=== PATIENT | female | born 1990 | race Caucasian/White ===

== ENCOUNTER → 2019-10-19 12:29 | Outpatient (CLI) | payer OTHER, SELFPAY ==
--- NOTE | 2019-10-19 12:32 | DI.RAD.S_ITS ---
PROCEDURE: XR KNEE RT 3V INDICATIONS: 2 months of knee pain TECHNIQUE: 3-views of the knee were acquired. COMPARISON: None. FINDINGS: Bones: No fractures or dislocations. No suspicious bony lesions. Soft tissues: No joint effusion. No suspicious soft tissue calcifications. IMPRESSION: Right knee without acute osseous abnormalities or malalignment. If there are persistent symptoms or clinical suspicion for pathology, then repeat radiographs or advanced imaging (CT, MRI or bone scan) should be considered for further evaluation. Dictated by: Julio César Theodore M.D. on 10/19/2019 at 16:35 Approved by: Julio César Theodore M.D. on 10/19/2019 at 16:36
== END ==
PROVIDERS: PCP Family Medicine; Referring Provider Family Medicine; Visit Provider Family Medicine
DX: M25.561 Pain in right knee (principal)
CPT/HCPCS: 73562

== ENCOUNTER → 2021-01-11 07:41 | Outpatient (CLI) | payer OTHER, SELFPAY ==
[2021-01-11] MEDS: COVID-19 VACC #2, MRNA(MOD) 100 MCG/0.5 ML VIAL IM (07:54)
== END ==
PROVIDERS: PCP Family Medicine; Visit Provider Internal Medicine
DX: Z23 Encounter for immunization (principal)
CPT/HCPCS: 0012A; 91301

== ENCOUNTER 2021-01-16 08:36 | Emergency (ER) | payer OTHER, SELFPAY ==
[2021-01-16 08:47] VITALS: BP 142/101; PULSE 101; RESP 18; TEMP 36.4; O2SAT 99; BMI 31.6
--- NOTE | 2021-01-16 08:49 | DI.US.S_ITS ---
PROCEDURE: US PERIPH VENOUS LOW EXTREM LT INDICATIONS: PAIN/SWELLING, ERYTHMA TECHNIQUE: Real-time imaging, as well as color and pulse Doppler interrogation, were performed of the lower extremity deep veins from the inguinal ligament to the popliteal fossa. COMPARISON: None. FINDINGS: The common femoral, femoral and popliteal veins are normally compressible, and free of intraluminal thrombus. Color and pulse Doppler demonstrate normal phasic intraluminal flow. There is normal augmentation response to distal compression maneuver. IMPRESSION: Negative for deep venous thrombosis. Dictated by: Kvng Santo M.D. on 01/16/2021 at 8:26 Approved by: Kvng Santo M.D. on 01/16/2021 at 8:26
--- NOTE | 2021-01-16 08:56 | ED.LOWEXIN ---
HPI - Extremity Injury (Lower) General Chief Complaint: Extremity Injury, Lower Stated Complaint: potential blood clot in left leg Time Seen by Provider: 01/16/21 08:42 Source: patient Mode of arrival: Ambulatory Limitations: no limitations History of Present Illness HPI Narrative: 33F nonsmoker with noncontributory medical history presents with a chief complaint of episodic pain and swelling in her left medial thigh and posterior knee. She states that over the past few days she has had a couple episodes where she feels pain and swelling as well as redness but it seems to go away after a bit of time. It is not currently causing her issue. She denies any recent injury, history of blood clots, recent travel or cancer. She has had no fever or chills. She denies any chest pain or shortness of breath. She is not dizzy, weak or lightheaded. Related Data Previous Rx's Medication Instructions Recorded levonorgestrel-ethinyl estradiol 1 tab PO DAILY #84 tab 01/12/20 0.1 mg-20 mcg tablet Allergies Allergy/AdvReac Type Severity Reaction Status Date / Time Penicillins AdvReac Severe Rash Verified 01/16/21 09:27 Review of Systems Constitutional Constitutional: Denies chills, Denies fatigue, Denies fever(s), Denies frequent falls, Denies lethargy and Denies weakness Eyes Eyes: Denies change in vision, Denies eye discharge, Denies irritation and Denies loss of vision ENT Ears, Nose, Mouth, and Throat: Denies change in voice, Denies dizziness, Denies neck pain, Denies sore throat and Denies throat swelling Cardiovascular Cardiovascular: Denies chest pain, Denies irregular heart rhythm, Denies lightheadedness, Denies palpitations, Denies dyspnea, Denies dyspnea on exertion and Denies orthopnea Respiratory Respiratory: Denies cough, Denies dyspnea, Denies dyspnea on exertion and Denies wheezing Gastrointestinal Gastrointestinal: Denies abdominal pain, Denies change in bowel habits, Denies diarrhea, Denies nausea and Denies vomiting Musculoskeletal Musculoskeletal: Denies neck pain and Denies numbness Integumentary/Breasts Skin/Breast: Denies pruritus, Reports erythema, Denies rash, Reports skin pain, Reports skin swelling and Denies wounds Neurologic Neurologic: Denies behavioral changes, Denies confusion, Denies dizziness, Denies frequent falls, Denies loss of vision, Denies numbness and Denies weakness Psychiatric Psychiatric: Denies anxiety, Denies behavioral changes, Denies confusion, Denies depression, Denies homicidal ideation and Denies suicidal ideation Endocrine Endocrine: Denies fatigue, Denies flushing and Denies palpitations Hematologic/Lymphatic Hematologic/Lymphatic: Denies easy bruising Allergic/Immunologic Allergic/Immunologic: Denies urticaria, Denies throat swelling and Denies wheezing Patient History Medical History (Updated 01/16/21 @ 09:36 by Franko Manriquez DO) Chicken pox (~1997) Fractures Irregular menstrual cycle (~2014) Left leg pain Right knee pain Somatic dysfunction of right lower extremity Varicose veins of both legs with edema Surgical History (Updated 10/17/19 @ 15:20 by Kamala Bosch) Anesthesia History of varicose vein ligation [place] teeth removed (~2010) Family History (Updated 10/17/19 @ 15:22 by Kamala Bosch) Sister Liver failure Grandmother Cancer Grandfather Cancer History of heart disease Hyperlipidemia Hypertension Grandmother Hypertension Stroke Social History Smoking Status: Never smoker Smoking Status: Never smoker alcohol intake frequency: 0-2 drinks per day Substance Use Type: does not use Exam Narrative Exam Narrative: GEN: AOx3 and in mild distress EYES: Pupils are equal, round, and reactive to light and accommodation. Extraoccular muscles are intact bilaterally. There is no subconjunctival hemorrhage or exudate. CHEST: Lungs are clear to auscultation bilaterally and free of wheezes, rales, or rhonchi. Heart rate is regular rhythm, there are no murmurs, clicks, rubs, or gallops. There is no chest wall tenderness. ABD: Abdomen is soft and nontender. There is no guarding or rebound. Bowel sounds are normal in all 4 quadrants. There is no mass or organomegaly. EXT: Full painless ROM of all extremities with no loss of sensation or strength. SKIN: Warm, pink, and dry. No erythema or rash Initial Vital Signs Initial Vital Signs: Vital Signs Temperature 97.6 F 01/16/21 08:47 Pulse Rate 101 H 01/16/21 08:47 Respiratory Rate 18 01/16/21 08:47 Blood Pressure 142/101 H 01/16/21 08:47 Pulse Oximetry 99 01/16/21 08:47 Course Orders Ordered: ED Orders 01/16/21 08:49 US periph venous low extrem lt Stat Vital Signs Vital signs: Vital Signs - 8 hr 01/16/21 08:47 Temperature 97.6 F Pulse Rate 101 H Respiratory Rate 18 Blood Pressure 142/101 H Pulse Oximetry 99 MDM - Extremity Injury (Lower) Lab Data Labs: [address] [id number] ReportSigned Patient: Briana Magallon MMR#: [id number]: [id number]:[id number]/Sex: 30 / FDate of Service: 01/16/21Loc: EDAccession Number: [id number] Procedure: US periph venous low extrem lt Ordering Provider: Franko Manriquez D.O. PROCEDURE: US PERIPH VENOUS LOW EXTREM LT INDICATIONS: PAIN/SWELLING, ERYTHMA TECHNIQUE: Real-time imaging, as well as color and pulse Doppler interrogation, were performed of the lower extremity deep veins from the inguinal ligament to the popliteal fossa. COMPARISON: None. FINDINGS: The common femoral, femoral and popliteal veins are normally compressible, and free of intraluminal thrombus. Color and pulse Doppler demonstrate normal phasic intraluminal flow. There is normal augmentation response to distal compression maneuver. IMPRESSION: Negative for deep venous thrombosis. Dictated by: Kvng Santo M.D. on 01/16/2021 at 8:26 Approved by: Kvng Santo M.D. on 01/16/2021 at 8:26 [facility] Narrative Medical decision making narrative: Patient with episodic pain, swelling and redness. She has minimal risk factors for DVT and had a negative ultrasound, however this is still on the differential given her description. Cellulitis considered but thought less likely given lack of current symptoms. She has had no systemic findings. I did discuss with her taking a baby aspirin in continued use of her compression stockings with follow-up in 1 week for ongoing symptoms. Discharge Plan Departure Patient Disposition: Home Clinical Impression: Left leg pain Instructions: DI for Leg Pain Activity Restrictions/Additional Instructions: *You have been diagnosed with [leg pain without evidence of clot] *What to do: *Please continue to take your regular medications as directed. [ ] New medication prescriptions sent to your pharmacy: [ ] [ ] New medication written as a paper prescription [x] No new medications given *Please follow up with your primary care provider in 2-3 days, call for an appointment. Let them know you were seen in the Emergency Department and that we ask that you be seen in follow up. We will electronically transmit a record of today's note if your PCP is in our system *If you do not have a primary care provider please contact the [facility] Resource line at [phone]. They will ask some questions about your medical history and help get you set up with a doctor in the community. *Return to Emergency Department if you should have any new, worsening or concerning symptoms, such as [fever greater than 101 F, shaking chills, worsening pain, persistent vomiting or other bothersome symptoms] Prescriptions: No Action levonorgestrel-ethinyl estrad 0.1-20 mg-mcg tablet 1 tab PO DAILY Qty: 84 RF: 1 Referrals: Jose Carlos Villatoro DO [Primary Care Provider] -
== END 2021-01-16 09:54 | disposition home or self-care (01) ==
PROVIDERS: Emergency Provider Emergency Medicine; PCP Family Medicine
DX: M79.605 Pain in left leg (principal)
CPT/HCPCS: 93971; 99283

== ENCOUNTER → 2021-03-02 11:32 | Outpatient (CLI) | payer OTHER, SELFPAY ==
[2021-03-02 12:47] LABS: HCG Quantitative /Beta subunit 26.5 mIU/mL
[2021-03-04 12:29] LABS: HCG Quantitative /Beta subunit 66.5 mIU/mL
== END ==
PROVIDERS: PCP Family Medicine; Referring Provider Family Medicine; Visit Provider Family Medicine
DX: Z32.00 Encounter for pregnancy test, result unknown (principal)
CPT/HCPCS: 36415; 84702

== ENCOUNTER → 2021-03-05 17:01 | Outpatient (CLI) | payer OTHER, SELFPAY ==
[2021-03-05 17:51] LABS: Progesterone, Total 6.27 ng/mL
== END ==
PROVIDERS: PCP Family Medicine; Visit Provider Family Medicine
DX: Z34.90 Encounter for supervision of normal pregnancy, unspecified, unspecified trimester (principal); N92.6 Irregular menstruation, unspecified
CPT/HCPCS: 84144

== ENCOUNTER → 2021-03-06 17:32 | Outpatient (CLI) | payer OTHER, SELFPAY ==
[2021-03-06 19:03] LABS: HCG Quantitative /Beta subunit 206.1 mIU/mL
== END ==
PROVIDERS: PCP Family Medicine; Referring Provider Specialist; Visit Provider Specialist
DX: Z34.90 Encounter for supervision of normal pregnancy, unspecified, unspecified trimester (principal)
CPT/HCPCS: 36415; 84702

== ENCOUNTER → 2021-03-19 07:32 | Outpatient (CLI) | payer OTHER, SELFPAY ==
[2021-03-19 10:40] LABS: HCG Quantitative /Beta subunit 19568 mIU/mL
== END ==
PROVIDERS: PCP Family Medicine; Referring Provider Specialist; Visit Provider Specialist
DX: O26.899 Other specified pregnancy related conditions, unspecified trimester (principal); R10.9 Unspecified abdominal pain
CPT/HCPCS: 36415; 84702

== ENCOUNTER → 2021-03-21 07:30 | Outpatient (CLI) | payer OTHER, SELFPAY ==
[2021-03-21 09:44] LABS: HCG Quantitative /Beta subunit 27957 mIU/mL
== END ==
PROVIDERS: PCP Family Medicine; Referring Provider Specialist; Visit Provider Specialist
DX: O26.899 Other specified pregnancy related conditions, unspecified trimester (principal); R10.9 Unspecified abdominal pain
CPT/HCPCS: 36415; 84702

== ENCOUNTER → 2021-04-06 17:36 | Outpatient (CLI) | payer OTHER, SELFPAY ==
[2021-04-06 18:13] LABS: Add Manual Diff / Slide Review NO; Basophils Absolute Auto 0 /uL (0-100); Basophils Percent Auto 0.2 % (0-2); Eosinophils Absolute Auto 100 /uL (0-450); Eosinophils Percent Auto 0.6 % (2-4); Hematocrit 39.7 % (36-46); Hemoglobin 13.4 g/dL (12.0-16.0); Lymphocytes Absolute Auto 2200 /uL (1100-4500); Mean Corpuscular HGB Conc 33.7 % (30-36); Mean Corpuscular Hemoglobin 29.5 PG (26-34); Mean Corpuscular Volume 87.5 fL (80-100); Monocytes Absolute Auto 900 /uL (0-900); Monocytes Percent Auto 6.8 % (3-14); Neutrophils Absolute Auto 9600 /uL (1500-7000); Neutrophils Percent Auto 75.4 % (50-75); Platelet Count 272 X10^3/uL (150-400); Red Blood Cell Count 4.53 X10^6/uL (4.0-5.2); Red Cell Distribution Width 12.5 % (11.6-14.8); White Blood Cell Count 12.7 X10^3/uL (4.5-11.0)
[2021-04-06 18:15] LABS: Appearance Urine UA CLEAR; Bilirubin Urine UA NEGATIVE (NEGATIVE); Color Urine UA YELLOW; Glucose Urine UA NEGATIVE (Negative); Ketones Urine UA NEGATIVE (NEGATIVE); Leukocyte Esterase Urine UA NEGATIVE (NEGATIVE); Nitrite Urine UA NEGATIVE (Negative); Occult Blood Urine UA NEGATIVE (Negative); Protein Urine UA NEGATIVE (Negative); Urobilinogen Urine UA 0.2 E.U./dL (0.2)
[2021-04-06 18:18] LABS: Glucose 90 mg/dL (70-100)
[2021-04-06 18:36] LABS: Hemoglobin A1C% w Est Avg Glu 5.2 % (4.0-6.0)
[2021-04-06 19:41] LABS: Urine Chlamydia NOT DETECTED; Urine N gonorrhoeae NOT DETECTED
[2021-04-06 20:06] LABS: HIV 1 & 2 Ab/Ag 4th Gen Combo NEGATIVE (NEGATIVE); Hep C Virus Ab w/Reflex Quant NEGATIVE s/c (NEGATIVE); Hepatitis B Surface Antigen NEGATIVE s/c (NEGATIVE)
[2021-04-07 11:21] LABS: RPR Screen Non Reactive (Non Reactive); Varicella IgG Antibody 962 index (Immune >165)
== END ==
PROVIDERS: PCP Family Medicine; Referring Provider Specialist; Visit Provider Specialist
DX: Z34.01 Encounter for supervision of normal first pregnancy, first trimester (principal); Z3A.08 8 weeks gestation of pregnancy
CPT/HCPCS: 36415; 80055; 81003; 82947; 83036; 86787; 86803; 86850; 86900; 86901; 87086; 87389; 87491; 87591

== ENCOUNTER → 2021-04-19 15:31 | Outpatient (CLI) | payer OTHER, SELFPAY | PROVIDERS: PCP Family Medicine; Referring Provider Specialist; Visit Provider Specialist | DX: Z34.81 Encounter for supervision of other normal pregnancy, first trimester (principal); Z36.0 Encounter for antenatal screening for chromosomal anomalies | CPT/HCPCS: 36415 ==

== ENCOUNTER → 2021-06-04 16:51 | Outpatient (CLI) | payer OTHER, SELFPAY ==
[2021-06-06 19:12] LABS: Gest Age on Col Date 16.7 weeks (.); Gestational Age Ultrasound (.); Insulin Dep Diabetes No (.); OSBR Risk 1IN 5096 (.); Results Report (.); Test Results *Screen Negative* (.)
== END ==
PROVIDERS: PCP Family Medicine; Referring Provider Specialist; Visit Provider Specialist
DX: Z34.90 Encounter for supervision of normal pregnancy, unspecified, unspecified trimester (principal); Z3A.16 16 weeks gestation of pregnancy
CPT/HCPCS: 36415; 82105

== ENCOUNTER → 2021-07-02 15:38 | Outpatient (CLI) | payer OTHER, SELFPAY ==
--- NOTE | 2021-07-02 15:39 | DI.US.S_ITS ---
PROCEDURE: US OB >= 14 WEEKS FETUS INDICATIONS: 20 WEEK ANATOMY SCAN OUTSIDE/PRIOR DATING DATA: Last menstrual period (LMP): Uncertain. First dating scan (date and location): [facility]; July 02, 2021 . Estimated date of delivery (MAEGAN) from first dating scan: November 09, 2021 . TECHNIQUE: Real-time scanning was performed of the fetus, with image documentation and biometric measurements. COMPARISON: None. FINDINGS: General: A single living intrauterine gestation is present. Presentation: Oblique/breech. Placenta: Placental position is anterior , without previa. Amniotic fluid index: 12.6 cm, normal range is 5-24 cm. heart rate: 143 beats per minute. Maternal cervical canal: 4.2 cm long. Normal lower limit is 2.5 cm. biometrics: Biparietal diameter: 4.8 cm Head circumference: 18.4 cm Abdominal circumference: 16.2 cm Femur length: 4 cm Estimated gestational age from initial scan: not applicable. Composite gestational age from present scan: 21 weeks, 3 days Estimated weight: 451 g +/-67 g Measurement variability for biometric dating: +/- 7 days from 14 weeks to 15 weeks 6 days gestation, +/- 10 days from 16 weeks to 21 weeks 6 days gestation, +/- 2 weeks from 22 weeks to 27 weeks 6 days gestation, +/- 3 weeks for 28 weeks gestation or later. weight reference: 4500 g or EFW >90/95% is considered macrosomia or large for gestational age. EFW <10% is small for gestational age. EFW 5% or less is considered intra-uterine growth restriction. Anatomic survey: Neuro: Ventricles are non-dilated at less than 10 mm. Cisterna magna is normal at 3-11 mm. Cerebellum is normal in size and morphology. Nuchal skin fold: Normal at less than 6 mm between 14-21 weeks gestational age. Face: Not well seen. Spine: Sacrum against the uterus . The remaining portions of the spine appear normal.. Heart: 4-chambered heart is present. Outflow tracts not well visualized. Diaphragm: Suboptimal evaluation. Stomach: Left-sided stomach is present. Kidneys: Suboptimal evaluation. Cord: 3-vessel cord has orthotopic insertion. Bladder: Normal in size. Extremities: All 4 extremities identified. IMPRESSION: Live single intrauterine gestation as detailed above. Dictated by: Rodrigo Tamayo M.D. on 07/02/2021 at 17:27 Approved by: Rodrigo Tamayo M.D. on 07/02/2021 at 17:33
== END ==
PROVIDERS: PCP Family Medicine; Referring Provider Specialist; Visit Provider Specialist
DX: Z34.02 Encounter for supervision of normal first pregnancy, second trimester (principal); Z3A.21 21 weeks gestation of pregnancy
CPT/HCPCS: 76811

== ENCOUNTER → 2021-08-08 07:08 | Outpatient (CLI) | payer OTHER, SELFPAY ==
[2021-08-08 09:48] LABS: Hematocrit 32.8 % (36-46); Hemoglobin 11.3 g/dL (12.0-16.0)
[2021-08-08 12:05] LABS: GTT (PREG) 1 Hour PP 50gm Dose 90 mg/dL (76-139)
== END ==
PROVIDERS: PCP Family Medicine; Referring Provider Specialist; Visit Provider Specialist
DX: Z34.02 Encounter for supervision of normal first pregnancy, second trimester (principal); Z3A.26 26 weeks gestation of pregnancy
CPT/HCPCS: 36415; 82950; 85014; 85018

== ENCOUNTER → 2021-08-17 16:14 | Outpatient (CLI) | payer OTHER, SELFPAY ==
[2021-08-17 17:08] LABS: COVID19 -Nasal RAPID POSITIVE (Negative)
== END ==
PROVIDERS: PCP Family Medicine; Visit Provider Physician Assistant
DX: U07.1 COVID-19 (principal); Z20.822 Contact with and (suspected) exposure to COVID-19; R09.81 Nasal congestion; R52 Pain, unspecified; R05.9 Cough, unspecified
CPT/HCPCS: 87635

== ENCOUNTER → 2021-10-17 15:42 | Outpatient (CLI) | payer OTHER, SELFPAY ==
[2021-10-18 13:25] LABS: Strep Grp B PCR NEG for Grp B Strep
== END ==
PROVIDERS: PCP Family Medicine; Visit Provider Specialist
DX: Z36.85 Encounter for antenatal screening for Streptococcus B (principal); Z3A.36 36 weeks gestation of pregnancy
CPT/HCPCS: 87653

== ENCOUNTER → 2021-10-30 10:25 | Outpatient (CLI) | payer OTHER, SELFPAY ==
[2021-10-30 10:52] LABS: Add Manual Diff / Slide Review NO; Basophils Absolute Auto 0 /uL (0-100); Basophils Percent Auto 0.1 % (0-2); Eosinophils Absolute Auto 100 /uL (0-450); Eosinophils Percent Auto 0.7 % (2-4); Hematocrit 37.8 % (36-46); Hemoglobin 12.5 g/dL (12.0-16.0); Lymphocytes Absolute Auto 1500 /uL (1100-4500); Lymphocytes Percent Auto 13.7 % (25-40); Mean Corpuscular HGB Conc 33.1 % (30-36); Mean Corpuscular Hemoglobin 28.9 PG (26-34); Mean Corpuscular Volume 87.5 fL (80-100); Monocytes Absolute Auto 800 /uL (0-900); Monocytes Percent Auto 7.1 % (3-14); Neutrophils Absolute Auto 8600 /uL (1500-7000); Neutrophils Percent Auto 78.4 % (50-75); Platelet Count 251 X10^3/uL (150-400); Red Blood Cell Count 4.33 X10^6/uL (4.0-5.2); Red Cell Distribution Width 14.1 % (11.6-14.8)
[2021-10-30 11:44] LABS: Alanine Aminotransferase 16 IU/L (<35); Aspartate Aminotransferase 26 IU/L (14-36); BUN Creatinine Ratio 13.2 (6-22); Blood Urea Nitrogen 7 mg/dL (7-17); Estimated Glomerular Filt Rate > 60.0 mL/min (>60); Uric Acid 4.3 mg/dL (2.5-6.2)
== END ==
PROVIDERS: PCP Family Medicine; Referring Provider Specialist; Visit Provider Specialist
DX: O16.3 Unspecified maternal hypertension, third trimester (principal)
CPT/HCPCS: 36415; 82565; 84450; 84460; 84520; 84550; 85025

== ENCOUNTER 2021-11-06 20:04 | Inpatient (IN) | payer OTHER, SELFPAY ==
[2021-11-06 20:27] VITALS: BP 119/83
[2021-11-06] MEDS: DINOPROSTONE VAG (CERVIDIL) 10 MG VAG (21:10)
[2021-11-06 21:11] LABS: Add Manual Diff / Slide Review NO; Basophils Absolute Auto 0 /uL (0-100); Basophils Percent Auto 0.1 % (0-2); Eosinophils Absolute Auto 100 /uL (0-450); Eosinophils Percent Auto 0.7 % (2-4); Hematocrit 36.1 % (36-46); Hemoglobin 12.3 g/dL (12.0-16.0); Lymphocytes Absolute Auto 1900 /uL (1100-4500); Lymphocytes Percent Auto 15.6 % (25-40); Mean Corpuscular HGB Conc 34.2 % (30-36); Mean Corpuscular Hemoglobin 29.5 PG (26-34); Mean Corpuscular Volume 86.3 fL (80-100); Monocytes Absolute Auto 1100 /uL (0-900); Monocytes Percent Auto 8.9 % (3-14); Neutrophils Absolute Auto 9100 /uL (1500-7000); Neutrophils Percent Auto 74.7 % (50-75); Platelet Count 234 X10^3/uL (150-400); Red Blood Cell Count 4.18 X10^6/uL (4.0-5.2); Red Cell Distribution Width 13.9 % (11.6-14.8); White Blood Cell Count 12.1 X10^3/uL (4.5-11.0)
[2021-11-06 21:25] LABS: COVID19 -Nasal RAPID Negative (Negative)
[2021-11-06 21:33] LABS: Alanine Aminotransferase 15 IU/L (<35)
[2021-11-06] MEDS: ZOLPIDEM 5 MG TABLET PO (22:43)
--- NOTE | 2021-11-07 07:00 | PM.OBPNLAB ---
Date/Time Date Patient Seen: 11/07/21 Time Patient Seen: 07:00 Pain Control Pain control: tolerating well Comments: Blood pressure 121/67, temperature 36.3? Pelvic Exam Dilation (cm): 1 Effacement (%): 75 station: 0 Amniotic membrane status: Intact Contractions Contractions on admission: irregular Monitor mode: External Contraction pattern: Irregular Contraction intensity: Mild Status status: Category l Heart Rate Baseline: 120 Monitor Accelerations: Present Monitor Decelerations: Absent Monitor Variability: Moderate Assessment and Plan Assessment: induction ongoing Plan: begin patient augmentation (Pitocin) Comments: Epidural when requested
[2021-11-07] MEDS: LACTATED RINGERS 1,000 ML 100 ML IV ×2 (08:23→18:01)
[2021-11-07] MEDS: OXYTOCIN PREMIX 30 UNIT/500 ML PLAST..BAG IV (08:24)
--- NOTE | 2021-11-07 11:34 | PM.OBPNLAB ---
Date/Time Date Patient Seen: 11/07/21 Time Patient Seen: 11:34 Pain Control Pain control: tolerating well Pelvic Exam Dilation (cm): 1 Effacement (%): 75 station: 0 Amniotic membrane status: Intact Contractions Contractions on admission: regular Monitor mode: External Pitocin rate (mU/min): 20 Contraction frequency (min): 3 Contraction duration (min): 1 Contraction pattern: Regular Contraction intensity: Moderate Status status: Category l Heart Rate Baseline: 130 Monitor Accelerations: Present Monitor Decelerations: Absent Monitor Variability: Moderate Assessment and Plan Assessment: induction ongoing Plan: continuous present management
[2021-11-07] MEDS: ZOLPIDEM 5 MG TABLET PO (21:33)
--- NOTE | 2021-11-08 08:10 | PM.OBPNLAB ---
Date/Time Date Patient Seen: 11/07/21 Time Patient Seen: 17:30 Pain Control Pain control: tolerating well Pelvic Exam Dilation (cm): 1 Effacement (%): 75 station: 0 Amniotic membrane status: Intact Contractions Contractions on admission: regular Monitor mode: External Pitocin rate (mU/min): 12 Contraction frequency (min): 3 Contraction duration (min): 1 Contraction pattern: Regular Contraction intensity: Moderate Status status: Category l Heart Rate Baseline: 140 Monitor Accelerations: Present Monitor Decelerations: Absent Monitor Variability: Moderate Assessment and Plan Assessment: induction ongoing Comments: Patient had spaced out contractions at Pitocin at 24 milliunits. The Pitocin was turned off for an hour than restarted at half dose. Patient began having more uncomfortable contractions. Decision will be to continue Pitocin for few more hours and then decide if we will let her rest overnight or continue with induction.
--- NOTE | 2021-11-08 08:12 | PM.OBPNLAB ---
Date/Time Date Patient Seen: 11/08/21 Time Patient Seen: 08:12 Pain Control Pain control: tolerating well Pelvic Exam Dilation (cm): 1 Effacement (%): 75 station: 0 Comments: Patient had the Pitocin. Yesterday evening due to no change in cervix. She slept through the night. Decision was made to proceed with Burnett bulb induction this morning. With placement of the Burnett bulb of she had rupture of membranes clear fluid. Contractions Contractions on admission: none Monitor mode: External Contraction frequency (min): 0 Contraction pattern: Absent Status status: Category l Heart Rate Baseline: 130 Monitor Accelerations: Present Monitor Decelerations: Absent Monitor Variability: Moderate Assessment and Plan Assessment: induction ongoing Comments: Burnett bulb placed. Pitocin will be started and continued at 3 milliunits with the Burnett bulb in place.
--- NOTE | 2021-11-08 14:17 | PM.OBPNLAB ---
Date/Time Date Patient Seen: 11/08/21 Time Patient Seen: 12:40 Pain Control Pain control: tolerating well Pelvic Exam Dilation (cm): 2 Effacement (%): 80 station: 0 Amniotic membrane status: Ruptured Contractions Contractions on admission: regular Monitor mode: External Contraction frequency (min): 5 Contraction duration (min): 1 Contraction pattern: Regular Contraction intensity: Moderate Status status: Category l Heart Rate Baseline: 120 Monitor Accelerations: Present Monitor Decelerations: Absent Monitor Variability: Moderate Assessment and Plan Assessment: induction ongoing
[2021-11-08] MEDS: LACTATED RINGERS 1,000 ML 100 ML IV (18:02)
[2021-11-09] MEDS: FENT 2MCG/ML BUPIV 0.125% EPI 200 MCG/100 ML PLAST..BAG 8 MCG EPIDURAL
[2021-11-09] MEDS: ACETAMINOPHEN 325 MG TABLET 650 MG PO ×3 (02:39→18:22)
[2021-11-09] MEDS: CEFAZOLIN 10 ML IV (02:50)
--- NOTE | 2021-11-09 04:27 | PM.OBPNLAB ---
Date/Time Date Patient Seen: 11/09/21 Time Patient Seen: 04:27 Pain Control Pain control: epidural Pelvic Exam Dilation (cm): 4 Effacement (%): 100 station: 0 Amniotic membrane status: Ruptured Contractions Contractions on admission: regular Monitor mode: Internal Pitocin rate (mU/min): 14 Contraction frequency (min): 3 Contraction duration (min): 1 Contraction pattern: Regular Contraction intensity: Strong/Firm Intrauterine tone measurement: 50 Status status: Category l Heart Rate Baseline: 150 Monitor Accelerations: Present Monitor Decelerations: Absent Monitor Variability: Moderate Assessment and Plan Assessment: active labor Plan: Comments: Patient with no significant change in her cervix for over 6 hours despite documented adequate contractions by internal toco. Will proceed with section.
--- NOTE | 2021-11-09 04:29 | P.OP.PRE_ITS ---
Pre-operative Note COVID-19 COVID-19 status: Negative Result date/Date tested (Pos, Neg/Pending): 11/06/21 Criteria for continued procedure: Delay expected to result in less-positive ultimate med/surg outcome Interval Note History & Physical reviewed/Exam performed by Physician: Yes Changes to H&P: Yes H&P completed within 30 days and has changed as indicated here:: 1st stage ar rest
[2021-11-09] MEDS: AZITHROMYCIN 500 MG in DEXTROSE 5% IN WATER 250 ML IV (05:41)
--- NOTE | 2021-11-09 06:14 | SUR.OPER ---
Supine on Padded OR bed, head on pillow, safety belt at thigh, arms secured on padded arm boards at <90 degrees abduction. Bump under right buttock. Legs uncrossed with pillow under knees, gel pad to heels, tape over blanket to lower legs.
--- NOTE | 2021-11-09 06:14 | SUR.OPER ---
viable female delivered at 0559. cord blood and placenta sent with L&D nurses.
[2021-11-09] MEDS: ONDANSETRON 4 MG/2 ML INJ IV (06:49)
[2021-11-09] MEDS: HYDROMORPHONE 2 MG INJ IV (06:50)
[2021-11-09 06:56] VITALS: BP 122/75; PULSE 102; RESP 15; O2SAT 95
[2021-11-09 06:58] VITALS: BP 117/71; PULSE 88; RESP 12; O2SAT 94
--- NOTE | 2021-11-09 06:58 | P.OP_ITS ---
Operative Date/Time/Diagnoses Date of procedure: 11/09/21 Time of procedure: 06:58 Pre-op diagnosis: 1st stage arrest Post-op diagnosis: same Procedure & Clinicians Procedure: Primary low-transverse section Same procedure as scheduled: Yes Indications: 1st stage arrest Surgeon: Diana Escalona Mason Helper: Magdalena Eisenberg Anesthesia Type: Epidural Operative Notes Findings: Normal tubes, ovaries, uterus. Viable female infant weighing 8 lb 12 oz with Apgars of 8 and 9 Closure Type: primary Specimen(s): cord blood Intraoperative meds administered: Ketorolac and Pitocin Applied: Catheter (Burnett) Estimated Blood Loss (mL): 500 Blood products transfused: none Procedure in detail: The patient was brought to the operating room where she underwent bolus of her epidural for anesthesia. She was placed in a supine position with a left lateral tilt. A Burnett catheter was in place. Pulsatile stockings were placed and functional throughout the case. 2 g of Ancef were given IV 3 hours prior so she was given 500 mg of IV azithromycin prior to the incision. Warming was in place. The patient was prepped and draped in usual sterile fashion. A low transverse incision was made with a scalpel and the incision was carried down to the fascial layer which was incised transversely with scissors. The miller head assistant wet process did her side of the incision. The midline attachments are superiorly and inferiorly. Some bleeding was controlled Bovie. The rectus muscles were in the midline and the peritoneal incision was made with no damage to internal structures. The peritoneum was incised and superiorly and inferiorly. The incision was stretched with the surgeon and miller head assistant wet process placing traction. Bladder blade was placed and a bladder flap was developed and the bladder held away from the lower uterine segment. An incision was made in the uterus with the scalpel and the incision was extended with stretching. The head was elevated out of the abdomen and with fundal pressure by the miller head assistant wet process the baby was delivered. The was bulb suctioned for clear fluid and handed off to the warmer. Cord blood was collected. The placenta delivered spontaneously with traction. The uterus was cleaned with clean laps. The uterine incision was closed in 2 layers of 0 chromic suture the first a running locking layer the second an imbricating layer. The miller head assistant wet process was helping to expose the incision. The bladder peritoneum was repaired with 2-0 Vicryl suture. The gutters were cleaned of any remaining fluids and ovaries and tubes were observed to be normal. Adequate hemostasis was noted. The perineum was closed with 2-0 Vicryl suture. The fascia layer was closed with 0 Vicryl suture with 2 stitches. The miller head assistant wet process repairing half the incision with helping to retract and expose the incision for the other half. The incision was irrigated and adequate hemostasis noted. The incision was closed with interrupted 3-0 Vicryl sutures and then a subcuticular stitch of 4-0 Vicryl suture. Steri-Strips were placed. The uterus was massaged to remove any clots. The patient went to recovery room in good condition. Counts of instruments and sponges were correct. Dr. Eisenberg was present throughout the case to assist with retraction, fundal pressure to deliver the , and suturing half the fascia. Complications: none Baby 1: Gender: Female Presentation: vertex Position: Left Occiput Transverse Placental Delivery Description: Expressed Cord Vessel Description: 3 Vessels score (1 min): 8 score (5 min): 9 weight: 8 lb 12 oz Post-operative Condition: stable Disposition: other ( Center) Aftercare: routine postop
[2021-11-09] MEDS: OXYCODONE/ACETAMINOPHEN 5/325 TABLET 1 TAB PO (07:04)
[2021-11-09 07:13] VITALS: BP 115/74; PULSE 90; RESP 12; O2SAT 94
[2021-11-09] MEDS: DOCUSATE 100 MG CAPSULE 200 MG PO (08:46)
[2021-11-09] MEDS: OXYTOCIN PREMIX 30 UNIT/500 ML PLAST..BAG 100 UNIT IV (09:38)
[2021-11-09] MEDS: OXYCODONE IR 10 MG TABLET PO ×3 (10:54→21:00)
[2021-11-09] MEDS: KETOROLAC 30 MG/ML VIAL IV ×2 (12:52→21:00)
[2021-11-09 23:00] VITALS: BP 114/72; PULSE 81; RESP 16; TEMP 36.1
[2021-11-10] MEDS: ACETAMINOPHEN 325 MG TABLET 650 MG PO ×3 (00:20→13:43)
[2021-11-10] MEDS: OXYCODONE IR 10 MG TABLET PO ×2 (00:57→06:42)
[2021-11-10] MEDS: KETOROLAC 30 MG/ML VIAL IV (03:11)
[2021-11-10 07:17] LABS: Add Manual Diff / Slide Review NO; Basophils Absolute Auto 0 /uL (0-100); Basophils Percent Auto 0.2 % (0-2); Eosinophils Absolute Auto 100 /uL (0-450); Eosinophils Percent Auto 0.8 % (2-4); Hematocrit 29.9 % (36-46); Lymphocytes Absolute Auto 1500 /uL (1100-4500); Mean Corpuscular HGB Conc 33.5 % (30-36); Mean Corpuscular Hemoglobin 29.6 PG (26-34); Mean Corpuscular Volume 88.3 fL (80-100); Monocytes Absolute Auto 1000 /uL (0-900); Neutrophils Absolute Auto 12300 /uL (1500-7000); Platelet Count 160 X10^3/uL (150-400); Red Blood Cell Count 3.39 X10^6/uL (4.0-5.2); Red Cell Distribution Width 14.2 % (11.6-14.8)
--- NOTE | 2021-11-10 09:22 | P.DS_ITS ---
History of Present Illness History of Present Illness Date Patient Seen: 11/10/21 Time Patient Seen: 09:02 Chief complaint: Induction Narrative: Patient is a 31-year-old G1 admitted for elective induction at 39+ weeks EGA. Discharge Providers Provider Date of admission: 11/06/21 20:04 Discharge Date: 11/10/21 Primary care physician: Jose Carlos Villatoro DO Consults: 11/06/21 22:03 Consult to Anesthesiology Urgent Comment: Consulting Provider: Anesthesiologist Reason for consultation: Epidural Has provider been notified: No 11/09/21 07:23 Consult to International Marketing Manager Routine Comment: Discharge provider: Salvador Gan MD Summary Hospital Course Discharge Diagnosis: Intrauterine gestation, 39+ 2 weeks gestational age, delivered Secondary arrest of descent and dilatation in the 1st stage of labor Hospital Course: Briana was admitted on 11/07/[address] Diana Escalona at 39+ 0 weeks gestational age for elective induction. Despite cervical ripening and effective Pitocin induction the patient did not advance beyond 4 cm with the vertex descending only to 0 station. On the morning of 11/09/2021, patient underwent a primary section for the aforementioned indications which was productive of a viable female infant, Apgars of 8/9 with a weight of 8 lb 12 oz. following delivery both mother and baby have done extremely well with the patient ambulating independently, having prompt return of bowel and bladder function, tolerating a regular diet, and her pain is well controlled with oral med ications. She will be discharged at this at home in an afebrile normotensive condition with medications to include oxycodone 10 mg tab p.o. Q 4-6 hours as needed pain, dispense 20, ibuprofen 600 mg p.o. q.6 hours as needed pain, docusate 200 mg p.o. q.d., ferrous sulfate 325 mg tabs 1 p.o. q.d. with 500 mg of vitamin-C times 30 days. Prior to discharge the patient were counseled regarding precautionary symptoms, limitations activity, medications, plans for follow-up which will be in 1 week for her dressing removal. Status at Discharge Cognitive/behavioral status at discharge: oriented Functional status at discharge: independent ambulation Overall status at discharge: patient is progressing back to baseline Time Spent with Patient Time spent: Less than 30 minutes Exam Vital Signs (past 8 hours): Oxygen Delivery Method Room Air Const General: cooperative, comfortable and well developed Nutritional Appearance: average body habitus Orientation: alert and oriented x3 HENMT Head: normal to inspection, normocephalic and atraumatic Face and sinus: face symmetric Eyes General: appearance normal, both eyes and all related structures Conjunctivae: conjunctivae normal Sclera: sclerae normal EOM: EOM intact bilaterally Neck Neck: normal visual inspection Resp Effort & Inspection: normal respiratory effort and able to speak in complete sentences Auscultation: clear to auscultation bilaterally Cardio Rate: regular rate Rhythm: regular rhythm Heart Sounds: S1 normal, S2 normal and no murmurs GI Inspection: normal to inspection and incision (Dressing clean, dry, intact) Palpation: soft, no hepatosplenomegaly, mass (Minimally tender, firm fundus, U - 5) and tender (Mild, bilateral lower quadrant postsurgical tenderness) Auscultation: normal bowel sounds Skin General: no rashes or lesions noted Extrem General: no calf tenderness Psych Appearance: grossly normal Mental Status: mental status grossly normal Speech and Movement: speech and movement normal Mood: congruent mood Affect: normal affect Attitude: cooperative Thought Process: normal Thought Content: normal Judgment: judgment good Objective Labs Result Diagrams: 11/10/21 06:42 Labs: Laboratory Results - last 24 hr 11/10/21 06:42 WBC 15.0 H RBC 3.39 L Hgb 10.0 L Hct 29.9 L MCV 88.3 MCH 29.6 MCHC 33.5 RDW 14.2 Plt Count 160 Neut % (Auto) 82.0 H Lymph % (Auto) 10.[address] [place] % (Auto) 7.0 Eos % (Auto) 0.8 L Baso % (Auto) 0.2 Neut # (Auto) 67577 H Lymph # (Auto) 1500 [place] # (Auto) 1000 H Eos # (Auto) 100 Baso # (Auto) 0 PFSH Medical History (Updated 11/09/21 @ 06:53 by Diana Escalona MD) Anxiety Breast pain (~2020) Chicken pox (~1997) Fractures Irregular menstrual cycle (~2014) Left leg pain Leg fracture, right (~2007) Right knee pain Somatic dysfunction of right lower extremity Varicose veins of both legs with edema Surgical History (Updated 03/28/21 @ 13:17 by Geneva Rodríguez RN) Anesthesia History of varicose vein ligation [place] teeth removed (~2010) Family History (Updated 03/28/21 @ 13:14 by Geneva Rodríguez RN) Sister Liver failure Mental health problem Suicide Grandmother Cancer Multiple myeloma Grandfather Cancer History of heart disease Hyperlipidemia Hypertension Colon cancer Aortic aneurysm Grandmother Hypertension Stroke Father Hypertension Knee joint replacement status Mother Gestational diabetes mellitus (GDM) affecting Asthma Depression Grandfather Heavy smoker Myocardial infarction Family/Other No problems noted. 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[email or web address]) current occupational exposures/hazards: No special pasquale needs: No leisure activities: other Smoking Status: Never smoker second hand exposure: No alcohol intake: former (pre- : only social ) substance use type: does not use Type(s) of exercise: additional (Horse Riding) Discharge Assessment & Plan Assessment and Plan Assessment: Intrauterine gestation, 39+ 2 weeks gestational age, delivered Secondary arrest of descent and dilatation in the 1st stage of labor Anemia, postop Plan of Treatment: Patient will be discharged to home with the above medications and follow-up will be in 1 week for dressing removal. Written discharge instructions provided to supplement [id number] discharge counseling. Discharge Plan Discharge Plan Patient Disposition: Home Provider Discharge Comment: Please review the written instructions you received at the time you were discharged from the hospital. Your follow-up appointment for removal of your dressing will be scheduled in one week. If in the meanwhile you have any issues, concerns, or problems, please contact the office by phone or by portal message. Discharge orders & Medications Prescriptions: New acetaminophen 325 mg Tablet 650 mg PO Q6H PRN (Reason: Fever/Mild Pain (1-3)) Qty: 0 0RF docusate sodium 100 mg Capsule 200 mg PO DAILY Qty: 60 0RF oxycodone 10 mg Tablet 10 mg PO Q4H PRN (Reason: Pain, Severe (7-10)) Qty: 20 0RF ibuprofen 600 mg tablet 600 mg PO Q6H PRN (Reason: pain) Qty: 60 2RF ferrous sulfate [iron] 325 mg (65 mg iron) tablet 325 mg PO DAILY Qty: 30 0RF ascorbic acid (vitamin C) [Vitamin C] 500 mg tablet 250 mg PO DAILY Qty: 30 0RF Continued prenat.vits,leonora,xtn-ajdv-wzibi Tablet 1 tab PO DAILY 0RF No Action (DME) Double Electric breast Pump and Supplies See Rx Instructions .ROUTE .MEDSUPPLY Qty: 1 0RF Rx Instructions: Use electric breast pump and supplies as directed for 99 months. MAEGAN 11/14/21. Follow up/Referrals: Diana Escalona MD [Physician] - (Please make an appointment with for aquacel removal in one week.) Jose Carlos Villatoro DO [Primary Care Provider] - Discharge Health Status Multidrug resistant organism: No MDRO Diet/Activity/Treatments Diet: Diet as Tolerated Activity: As tolerated Skin/Wound/Dressing Care Report to your healthcare provider any signs of infection, such as:: chills, fever, increased pain, unusual drainage and unusual redness Dressing: Dressing will be removed at your one week post-op visit Visit Report/Discharge Packet Instructions: DI for , DI for and Nipple Soreness, DI for Prescription Opioid Use Discharge Data Primary Care Provider: Jose Carlos Villatoro
[2021-11-10] MEDS: DOCUSATE 100 MG CAPSULE 200 MG PO (09:29)
[2021-11-10] MEDS: IBUPROFEN 600 MG TABLET PO (09:30)
== END 2021-11-10 14:50 | disposition home or self-care (01) | DRG 788 ==
PROVIDERS: Admitting Provider Specialist; PCP Family Medicine; Referring Provider Specialist; Visit Provider Specialist
PROC: 10D00Z1 Extraction of Products of Conception, Low, Open Approach (ICD-10-PCS; CPT 59514; principal; 2021-11-09 05:30)
DX: O62.1 Secondary uterine inertia (principal); Z3A.39 39 weeks gestation of pregnancy; Z37.0 Single live birth
CPT/HCPCS: 01967; 01968; 36415; 59050; 59200; 59510; 59514; 84460; 85025; 86850; 86900; 86901; 87635; C9803; G0379; J0690; J1170; J1885; J2250; J2274; J2405; J2590; J2704; J3010

== ENCOUNTER → 2022-03-22 12:07 | Outpatient (CLI) | payer BC, SELFPAY ==
--- NOTE | 2022-03-22 12:08 | DI.US.S_ITS ---
LIMITED ULTRASOUND OF RIGHT BREAST: 03/22/2022 CLINICAL: Palpable right breast lump x 1 year. No prior exams were available for comparison. Color flow and real-time ultrasound of the right breast were performed. No significant abnormalities were seen sonographically in the right breast. IMPRESSION: NEGATIVE No sonographic evidence of malignancy. No mass or other abnormality at the area of reportedly palpable concern. This exam was interpreted at Station ID: [id number]. Electronically Signed By: Jerrod Mendoza M.D. jr/:03/22/2022 13:10:48 letter sent: Normal Exam Ultrasound BI-RADS: 1 Negative
--- NOTE | 2022-03-22 12:08 | DI.US.S_ITS ---
ULTRASOUND OF LEFT BREAST: 03/22/2022 CLINICAL: Palpable left breast lump x 4 mos (4 mos post ). No prior exams were available for comparison. Color flow and real-time ultrasound of the left breast were performed. No significant abnormalities were seen sonographically in the left breast. IMPRESSION: NEGATIVE No sonographic evidence of malignancy. No mass or other abnormality at the area of reportedly palpable concern. This exam was interpreted at Station ID: [id number]. Electronically Signed By: Jerrod Mendoza M.D. jr/:03/22/2022 13:10:19 letter sent: Normal Exam Ultrasound BI-RADS: 1 Negative
== END ==
PROVIDERS: PCP Family Medicine; Referring Provider Family Medicine; Visit Provider Family Medicine
DX: N63.10 Unspecified lump in the right breast, unspecified quadrant (principal); N63.20 Unspecified lump in the left breast, unspecified quadrant; N64.4 Mastodynia
CPT/HCPCS: 76642

== ENCOUNTER → 2022-07-02 12:58 | Outpatient (CLI) | payer BC, SELFPAY | PROVIDERS: Family Provider Family Medicine; PCP Family Medicine; Referring Provider Family Medicine; Visit Provider Family Medicine ==

== ENCOUNTER → 2022-10-08 13:58 | Outpatient (CLI) | payer OTHER, SELFPAY ==
[2022-10-08 15:24] LABS: Influenza A - CEPHEID Flu A NEGATIVE (NEGATIVE); Influenza B - CEPHEID Flu B NEGATIVE (NEGATIVE); Respiratory Syncytial Virus Negative (Negative)
[2022-10-08 15:26] LABS: COVID-19 CEPHEID 4-PLEX PCR Negative (Negative)
== END ==
PROVIDERS: Family Provider Family Medicine; PCP Family Medicine; Visit Provider Physician Assistant Medical
DX: J06.9 Acute upper respiratory infection, unspecified (principal)
CPT/HCPCS: 0241U

== ENCOUNTER → 2022-11-13 07:04 | Outpatient (CLI) | payer OTHER, SELFPAY ==
[2022-11-13 07:53] LABS: Add Manual Diff / Slide Review NO; Basophils Absolute Auto 0 /uL (0-100); Basophils Percent Auto 0.2 % (0-2); Eosinophils Absolute Auto 100 /uL (0-450); Eosinophils Percent Auto 2.2 % (2-4); Hemoglobin 14.2 g/dL (12.0-16.0); Lymphocytes Absolute Auto 1500 /uL (1100-4500); Lymphocytes Percent Auto 31.8 % (25-40); Mean Corpuscular HGB Conc 33.8 % (30-36); Mean Corpuscular Hemoglobin 28.9 PG (26-34); Mean Corpuscular Volume 85.3 fL (80-100); Monocytes Absolute Auto 400 /uL (0-900); Monocytes Percent Auto 8.3 % (3-14); Neutrophils Absolute Auto 2700 /uL (1500-7000); Neutrophils Percent Auto 57.5 % (50-75); Platelet Count 242 X10^3/uL (150-400); Red Blood Cell Count 4.93 X10^6/uL (4.0-5.2); White Blood Cell Count 4.7 X10^3/uL (4.5-11.0)
[2022-11-13 08:03] LABS: Alanine Aminotransferase 30 IU/L (<35); Albumin 4.7 g/dL (3.5-5.0); Albumin Globulin Ratio 1.3 (1.0-2.8); Alkaline Phosphatase 94 U/L (38-126); Aspartate Aminotransferase 28 IU/L (14-36); BUN Creatinine Ratio 18.1 (6-22); Bilirubin Total 0.8 mg/dL (0.2-1.3); Blood Urea Nitrogen 15 mg/dL (7-17); Carbon Dioxide 24 mmol/L (22-32); Chloride 105 mmol/L (98-107); Cholesterol 230 mg/dL (140-199); Estimated Glomerular Filt Rate > 60 mL/min (>60); Globulin 3.5 g/dL (1.7-4.1); Glucose 100 mg/dL (70-100); HDL Cholesterol 54 mg/dL (40-60); HEMOLYSIS < 15 (0-50); LDL Cholesterol Calculated 154 mg/dL (<100); Potassium 3.8 mmol/L (3.4-5.1); Sodium 139 mmol/L (137-145); Total Protein 8.2 g/dL (6.3-8.2); Triglycerides 112 mg/dL (35-150)
[2022-11-13 08:45] LABS: Vitamin D 25 Hydroxy (D3) 66.2 ng/mL (30.0-100.0)
[2022-11-13 08:50] LABS: TSH w/ Reflex to FT4 0.78 uIU/mL (0.47-4.68)
[2022-11-13 08:51] LABS: Vitamin B12 413 pg/mL (239-931)
== END ==
PROVIDERS: Family Provider Family Medicine; PCP Family Medicine; Referring Provider Family Medicine; Visit Provider Family Medicine
DX: N92.6 Irregular menstruation, unspecified (principal); Z13.21 Encounter for screening for nutritional disorder; Z13.220 Encounter for screening for lipoid disorders; Z13.29 Encounter for screening for other suspected endocrine disorder
CPT/HCPCS: 36415; 80053; 80061; 82306; 82607; 82672; 84443; 85025

== ENCOUNTER → 2023-02-09 09:32 | Outpatient (CLI) | payer OTHER, SELFPAY | PROVIDERS: Family Provider Family Medicine; PCP Family Medicine; Visit Provider Registered Nurse | DX: J02.9 Acute pharyngitis, unspecified (principal) | CPT/HCPCS: 87070 ==

== ENCOUNTER → 2023-08-14 16:10 | Outpatient (CLI) | payer OTHER, SELFPAY ==
[2023-08-14 18:38] LABS: HCG Quantitative /Beta subunit 44.2 mIU/mL
== END ==
PROVIDERS: Family Provider Family Medicine; PCP Family Medicine; Referring Provider Obstetrics & Gynecology; Visit Provider Obstetrics & Gynecology
DX: N91.2 Amenorrhea, unspecified (principal)
CPT/HCPCS: 36415; 84144; 84702

== ENCOUNTER → 2023-08-16 09:23 | Outpatient (CLI) | payer OTHER, SELFPAY ==
[2023-08-16 10:03] LABS: HCG Quantitative /Beta subunit 111.5 mIU/mL
== END ==
PROVIDERS: Family Provider Family Medicine; PCP Family Medicine; Referring Provider Obstetrics & Gynecology; Visit Provider Obstetrics & Gynecology
DX: N91.2 Amenorrhea, unspecified (principal)
CPT/HCPCS: 36415; 84702

== ENCOUNTER → 2023-09-05 18:55 | Outpatient (ROUT) | payer OTHER, SELFPAY ==
[2023-09-05 20:30] LABS: Urine N gonorrhoeae NOT DETECTED
[2023-09-05 20:31] LABS: Urine Chlamydia NOT DETECTED
== END ==
PROVIDERS: Family Provider Family Medicine; PCP Family Medicine; Visit Provider Obstetrics & Gynecology
DX: Z34.01 Encounter for supervision of normal first pregnancy, first trimester (principal); Z34.80 Encounter for supervision of other normal pregnancy, unspecified trimester
CPT/HCPCS: 87491; 87591

== ENCOUNTER → 2023-10-06 10:52 | Outpatient (CLI) | payer OTHER, SELFPAY ==
[2023-10-06 11:17] LABS: Add Manual Diff / Slide Review NO; Basophils Absolute Auto 0 /uL (0-100); Basophils Percent Auto 0.3 % (0-2); Eosinophils Absolute Auto 0 /uL (0-450); Eosinophils Percent Auto 0.5 % (2-4); Hematocrit 37.5 % (36-46); Hemoglobin 12.9 g/dL (12.0-16.0); Lymphocytes Absolute Auto 1600 /uL (1100-4500); Lymphocytes Percent Auto 19.1 % (25-40); Mean Corpuscular HGB Conc 34.5 % (30-36); Monocytes Absolute Auto 500 /uL (0-900); Neutrophils Absolute Auto 6300 /uL (1500-7000); Neutrophils Percent Auto 74.1 % (50-75); Platelet Count 282 X10^3/uL (150-400); Red Blood Cell Count 4.31 X10^6/uL (4.0-5.2); Red Cell Distribution Width 12.7 % (11.6-14.8); White Blood Cell Count 8.6 X10^3/uL (4.5-11.0)
[2023-10-06 11:53] LABS: Alanine Aminotransferase 24 IU/L (<35); Aspartate Aminotransferase 25 IU/L (14-36); BUN Creatinine Ratio 25.4 (6-22); Blood Urea Nitrogen 15 mg/dL (7-17); Estimated Glomerular Filt Rate > 60 mL/min (>60); Uric Acid 3.6 mg/dL (2.5-6.2)
[2023-10-06 14:35] LABS: Miscellaneous to LabCorp NATERA
[2023-10-06 16:38] LABS: Hepatitis B Surface Antigen NEGATIVE s/c (NEGATIVE); Rubella Antibody IgG 34.4 IU/mL (>15)
[2023-10-06 16:55] LABS: HIV 1 & 2 Ab/Ag 4th Gen Combo NEGATIVE (NEGATIVE); Hep C Virus Ab w/Reflex Quant NEGATIVE s/c (NEGATIVE)
[2023-10-07 08:48] LABS: RPR Screen Non Reactive (Non Reactive)
[2023-10-07 09:58] LABS: Varicella IgG Antibody 1045 index (Immune >165)
== END ==
PROVIDERS: Specialist; Family Provider Family Medicine; PCP Family Medicine; Referring Provider Obstetrics & Gynecology; Visit Provider Obstetrics & Gynecology
DX: Z34.81 Encounter for supervision of other normal pregnancy, first trimester (principal); Z3A.11 11 weeks gestation of pregnancy
CPT/HCPCS: 36415; 80055; 82565; 84450; 84460; 84520; 84550; 86787; 86803; 86850; 86900; 86901; 87389

== ENCOUNTER → 2024-03-16 07:36 | Outpatient (CLI) | payer OTHER, SELFPAY | PROVIDERS: PCP Family Medicine; Referring Provider Nurse Practitioner Family; Visit Provider Nurse Practitioner Family | DX: J02.9 Acute pharyngitis, unspecified (principal) | CPT/HCPCS: 87070 ==

== ENCOUNTER → 2024-03-16 09:25 | Outpatient (CLI) | payer OTHER, SELFPAY ==
--- NOTE | 2024-03-16 09:26 | DI.US.S_ITS ---
LIMITED ULTRASOUND OF LEFT BREAST: 03/16/2024 CLINICAL: Palpable left breast lump. Comparison is made to exam dated: 03/16/2024 mammogram - [facility]. Color flow and real-time ultrasound of the left breast 11 o'clock region were performed. Michael scale images of the real-time examination were reviewed. There is a 1.5 cm x 0.6 cm x 1.2 cm wider than tall oval lipoma in the left breast at 11 o'clock posterior depth 14 cm from the nipple. This oval lipoma is isoechoic with a well-defined boundary. This correlates as palpated and with area of clinical concern. Color flow imaging demonstrates that there is no vascularity present. IMPRESSION: BENIGN There is no sonographic evidence of malignancy. The 1.5 cm x 0.6 cm x 1.2 cm wider than tall oval lipoma in the left breast is benign. Recommend clinical follow up for persistent or worsening symptoms, or development of any clinically suspicious findings. Recommend initiating routine screening mammograms at age 40. Findings and recommendations were conveyed to the patient during today's evaluation. This exam was interpreted at Station ID: [id number]. Electronically Signed By: Julio César Theodore M.D. aty/:03/16/2024 11:08:30 letter sent: Clinical Evaluation Ultrasound BI-RADS: 2 Benign
--- NOTE | 2024-03-16 09:26 | DI.MG.S_ITS ---
BILATERAL DIGITAL DIAGNOSTIC MAMMOGRAM 3D/2D: 03/16/2024 No prior exams were available for comparison. There are scattered areas of fibroglandular density in both breasts (category b / 25%-50% glandular tissue). No significant masses, calcifications, or other findings are seen in either breast. IMPRESSION: INCOMPLETE: NEEDS ADDITIONAL IMAGING EVALUATION There is no abnormality seen in the left breast to correspond with the area of clinical concern and palpable abnormality indicated by triangular marker in the posterior depth, however, ultrasound is recommended for further evaluation and is scheduled to immediately follow this examination. Based on the Tyrer Cuzick model (a risk assessment model) the patient's lifetime risk is 14.1% and her 10 year risk is 0.7%. According to the ACR, ACS, and NCCN guidelines, an annual breast MRI exam along with mammogram is recommended if the patient's lifetime risk is 20% or greater. This exam was interpreted at Station ID: [id number]. NOTE: For mammograms, a report in lay terms will be sent to the patient. Approximately 15% of breast malignancies will not be visualized mammographically. In the management of a palpable breast mass, a negative mammogram must not discourage biopsy of a clinically suspicious lesion. Electronically Signed By: Julio César Theodore M.D. aty/:03/16/2024 10:11:43 ACR BI-RADS Category 0: Incomplete 3340F
== END ==
PROVIDERS: PCP Family Medicine; Referring Provider Physician Assistant; Visit Provider Physician Assistant
DX: R92.2 Inconclusive mammogram (principal); N63.20 Unspecified lump in the left breast, unspecified quadrant; N60.11 Diffuse cystic mastopathy of right breast; N60.12 Diffuse cystic mastopathy of left breast; D17.79 Benign lipomatous neoplasm of other sites; R92.323 Mammographic fibroglandular density, bilateral breasts; J02.9 Acute pharyngitis, unspecified
CPT/HCPCS: 76642; 77066; 87070; G0279

== ENCOUNTER → 2024-06-01 09:32 | Outpatient (CLI) | payer OTHER, SELFPAY ==
[2024-06-01 16:16] LABS: HCG Quantitative /Beta subunit 96.74 mIU/mL
== END ==
PROVIDERS: PCP Family Medicine; Referring Provider Obstetrics & Gynecology; Visit Provider Obstetrics & Gynecology
DX: N91.2 Amenorrhea, unspecified (principal)
CPT/HCPCS: 36415; 84702

== ENCOUNTER → 2024-06-03 12:29 | Outpatient (CLI) | payer OTHER, SELFPAY ==
[2024-06-03 16:06] LABS: HCG Quantitative /Beta subunit 271.28 mIU/mL
== END ==
PROVIDERS: PCP Family Medicine; Referring Provider Obstetrics & Gynecology; Visit Provider Obstetrics & Gynecology
DX: N91.2 Amenorrhea, unspecified (principal)
CPT/HCPCS: 36415; 84702

== ENCOUNTER → 2024-07-14 11:05 | Outpatient (CLI) | payer OTHER, SELFPAY ==
[2024-07-14 12:26] LABS: Natera Collection Specimen Collected
[2024-07-14 12:47] LABS: Add Manual Diff / Slide Review NO; Basophils Absolute Auto 0 /uL (0-100); Basophils Percent Auto 0.3 % (0-2); Eosinophils Absolute Auto 100 /uL (0-450); Eosinophils Percent Auto 0.6 % (2-4); Hematocrit 39.9 % (36-46); Hemoglobin 13.6 g/dL (12.0-16.0); Lymphocytes Absolute Auto 1700 /uL (1100-4500); Lymphocytes Percent Auto 16.9 % (25-40); Mean Corpuscular HGB Conc 34.1 % (30-36); Mean Corpuscular Hemoglobin 30.1 PG (26-34); Mean Corpuscular Volume 88.2 fL (80-100); Monocytes Absolute Auto 500 /uL (0-900); Neutrophils Absolute Auto 7600 /uL (1500-7000); Neutrophils Percent Auto 77.2 % (50-75); Platelet Count 304 X10^3/uL (150-400); Red Blood Cell Count 4.53 X10^6/uL (4.0-5.2); Red Cell Distribution Width 12.5 % (11.6-14.8); White Blood Cell Count 9.9 X10^3/uL (4.5-11.0)
[2024-07-14 13:14] LABS: Alanine Aminotransferase 24 IU/L (<35); Aspartate Aminotransferase 25 IU/L (14-36); Blood Urea Nitrogen 13 mg/dL (7-17); Estimated Glomerular Filt Rate > 60 mL/min (>60)
[2024-07-14 18:35] LABS: Hepatitis B Surface Antigen NEGATIVE s/c (NEGATIVE)
[2024-07-14 18:36] LABS: Rubella Antibody IgG 43.4 IU/mL (>15)
[2024-07-14 18:54] LABS: HIV 1 & 2 Ab/Ag 4th Gen Combo NEGATIVE (NEGATIVE); Hep C Virus Ab w/Reflex Quant NEGATIVE s/c (NEGATIVE)
[2024-07-15 11:36] LABS: Varicella IgG Antibody Reactive (Non Reactive)
[2024-07-16 05:15] LABS: RPR Screen Non Reactive (Non Reactive)
== END ==
PROVIDERS: Obstetrics & Gynecology; PCP Family Medicine; Referring Provider Specialist; Visit Provider Specialist
DX: O09.299 Supervision of pregnancy with other poor reproductive or obstetric history, unspecified trimester (principal); Z3A.10 10 weeks gestation of pregnancy; Z87.59 Personal history of other complications of pregnancy, childbirth and the puerperium
CPT/HCPCS: 36415; 80055; 82565; 84450; 84460; 84520; 84550; 86787; 86803; 86850; 86900; 86901; 87086; 87389

== ENCOUNTER → 2024-09-03 11:54 | Outpatient (CLI) | payer OTHER, SELFPAY ==
[2024-09-07 19:13] LABS: AFP Value 24.8 ng/mL (.); Gest Age on Col Date 17.6 weeks (.); Gestational Age EDD (.); Insulin Dep Diabetes No (.); OSBR Risk 1IN 10000 (.); Results Report (.); Test Results *Screen Negative* (.)
== END ==
PROVIDERS: PCP Family Medicine; Referring Provider Obstetrics & Gynecology; Visit Provider Obstetrics & Gynecology
DX: Z34.82 Encounter for supervision of other normal pregnancy, second trimester (principal); Z3A.17 17 weeks gestation of pregnancy
CPT/HCPCS: 36415; 82105

== ENCOUNTER 2024-09-09 17:08 | Emergency (ER) | payer OTHER, SELFPAY ==
--- NOTE | 2024-09-09 17:18 | DI.RAD.S_ITS ---
PROCEDURE: XR FOOT RT MIN 3V INDICATIONS: horse stepped on foot TECHNIQUE: 3 views of the foot were acquired. COMPARISON: None. FINDINGS/IMPRESSION: Extra-articular fracture of the 4th and 5th proximal necks of the phalanges. Dictated by: Dwayne Branch M.D. on 09/09/2024 at 17:39 Approved by: Dwayne Branch M.D. on 09/09/2024 at 17:40
[2024-09-09 17:19] VITALS: BP 157/104; PULSE 117; RESP 18; TEMP 36.6; O2SAT 98; BMI 36.9
[2024-09-09 17:20] VITALS: PULSE 114; O2SAT 100
[2024-09-09 17:21] VITALS: BP 150/102; PULSE 124; O2SAT 100
[2024-09-09 17:30] VITALS: BP 146/85; PULSE 106; RESP 23; O2SAT 100
[2024-09-09 17:45] VITALS: BP 134/78; PULSE 95; RESP 18; O2SAT 99
--- NOTE | 2024-09-09 17:51 | ED_ITS ---
HPI - Extremity Injury (Lower) General Chief Complaint: Extremity Injury, Lower Stated Complaint: trampled by horse foot injury, 18 wks Time Seen by Provider: 09/09/24 17:10 Source: patient Mode of arrival: Wheelchair History of Present Illness HPI Narrative: Patient was a 34-year-old female who is here for evaluation of approximately 24 hours after sustaining an injury to her right foot. A hoarse reared up and came down and stepped on her right foot. She has been using crutches because of the discomfort. She was 18 weeks reports no other injuries from the event. She was quite a bit of bruising to the right foot. Has injured her right ankle in the past but never her right foot. Related Data Home Medications Medication Instructions Recorded Confirmed vitamin-ferrous sulfate tab PO 08/21/23 08/04/24 27 mg iron-folic acid 0.8 mg tablet toñito seed oil-omega 3-6-9 1,000 mg cap PO 06/21/24 08/04/24 (580 mg) capsule ferrous gluconate 225 mg (27 mg 225 mg PO DAILY 06/21/24 08/04/24 iron) tablet (Fergon) Previous Rx's Medication Instructions Recorded Double Electric breast Pump and #1 ea 10/04/21 Supplies inhalational spacing device #1 ea 11/08/23 (Aerochamber MV spacer) progesterone micronized 200 mg 200 mg vaginal BEDTIME #30 caps 06/01/24 capsule (Prometrium) oxycodone 5 mg tablet 5 mg PO Q4H PRN pain #10 tabs 09/08/24 Allergies Allergy/AdvReac Type Severity Reaction Status Date / Time Penicillins Allergy Intermediate Rash Verified 09/09/24 17:22 kiwi AdvReac Mild Fuzzy Verified 09/09/24 17:22 Tongue Review of Systems Musculoskeletal Musculoskeletal: Reports system reviewed and no additional complaints, except as documented Integumentary/Breasts Skin/Breast: Reports system reviewed and no additional complaints, except as documented Neurologic Neurologic: Reports system reviewed and no additional complaints, except as documented Patient History Medical History Somatic dysfunction of right lower extremity Acute mastitis of left breast disorder Delivery by section using transverse incision of lower segment of uterus (~11/09/21) Breast pain (~2020) Left leg pain Right knee pain Irregular menstrual cycle (~2014) Hypertension affecting in third trimester Anxiety Leg fracture, right (~2007) Fractures Chicken pox (~1997) Surgical History (Updated 06/21/24 @ 13:08 by Cintia Davis RN) H/O dilation and curettage (~11/2023) Previous section (~2021) Anesthesia [place] teeth removed (~2010) History of varicose vein ligation Family History Sister Liver failure Mental health problem Suicide Drug overdose Grandmother Cancer Multiple myeloma Diverticulitis Grandfather Cancer History of heart disease Hyperlipidemia Hypertension Colon cancer Aortic aneurysm Grandmother Hypertension Stroke Father Hypertension Knee joint replacement status Mother Gestational diabetes mellitus (GDM) affecting Asthma Depression Grandfather Heavy smoker Myocardial infarction Family/Other No problems noted. 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) current occupational exposures/hazards: No special pasquale needs: No travel history: recent ([place]) leisure activities: other seatbelt use: always helmet use: Yes water heater temp set < 120 deg: Yes working smoke detector in home: Yes fire extinguisher in home: Yes carbon monox detector in home: Yes firearms in home: Yes firearms unloaded and locked: Yes do you feel safe at home: Yes Smoking Status: Never smoker second hand exposure: No alcohol intake: former (~2/week when not ) substance use type: does not use during the past year weight has: decreased > 10 lbs (intentional w/ exercise and diet, down ~35 lb!) well-balanced diet: daily or most days daily servings fruits/ve or more times/day caffeine: Yes (AM cup coffee) Type(s) of exercise: walking, aerobic, weight lifting, other (horseback riding) and running frequency: 5-6 times per week (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 Has tenderness to palpation throughout the dorsum of the right foot along the lateral aspect of the right foot. Compartments are soft. Course Orders Ordered: ED Orders 09/09/24 17:18 XR foot RT min 3V Stat Vital Signs Vital signs: Vital Signs - 8 hr 09/09/24 17:19 Temperature 98 F Pulse Rate 117 H Respiratory Rate 18 Blood Pressure 157/104 H Pulse Oximetry 98 Oxygen Delivery Method Room Air MDM - Extremity Injury (Lower) Imaging Data Extremity x-ray #1: Radiologist's Impression: PROCEDURE: XR FOOT RT MIN 3V INDICATIONS: horse stepped on foot TECHNIQUE: 3 views of the foot were acquired. COMPARISON: None. FINDINGS/IMPRESSION: Extra-articular fracture of the 4th and 5th proximal necks of the phalanges. [facility] Narrative Medical decision making narrative: Patient was neurovascularly intact. Low suspicion for compartment syndrome. S he does have fractures of the lateral aspect of her right foot in the phalanges which does correspond to her discomfort. Will be placed in a orthopedic boot. She has crutches. We discussed her injuries. We discussed conservative measures and follow up. She expressed understanding and agreement with plan. Discharge Plan Departure Patient Disposition: Home Clinical Impression: Foot fracture, right Instructions: DI for Foot Fracture, How To Perform RICE (Rest, Ice, Compress, Elevate), How to Use a Walking Boot Activity Restrictions/Additional Instructions: Continue to take all of your medications as directed. You can take the boot off to shower and to sleep at night but for the next several weeks will need to wear it when you are walking. The crutches for your comfort as well. Keep all of your scheduled medical appointments. Return to the emergency department for new or worsening symptoms. Prescriptions: No Action (DME) Aerochamber MV Spacer See Rx Instructions .ROUTE .MEDSUPPLY Qty: 1 0RF Rx Instructions: As directed progesterone micronized [Prometrium] 200 mg capsule 200 mg vaginal BEDTIME Qty: 30 3RF oxycodone 5 mg tablet 5 mg PO Q4H PRN (Reason: pain) Qty: 10 0RF (DME) Double Electric breast Pump and Supplies See Rx Instructions .ROUTE .MEDSUPPLY Qty: 1 0RF Rx Instructions: Use electric breast pump and supplies as directed for 99 months. MAEGAN 11/14/21. Fergon 225 mg (27 mg iron) tablet 225 mg PO DAILY toñito seed oil-omega 3-6-9 1,000 mg (580 mg) capsule PO vit-ferrous sulfat-FA 27 mg iron- 0.8 mg tablet PO Referrals: Rajeev Villatoro DO [Primary Care Provider] - Stand Alone Forms: Patient Portal/API/Survey
== END 2024-09-09 18:12 | disposition home or self-care (01) ==
PROVIDERS: Emergency Provider Emergency Medicine; PCP Family Medicine
DX: O9A.212 Injury, poisoning and certain other consequences of external causes complicating pregnancy, second trimester (principal); S92.511A Displaced fracture of proximal phalanx of right lesser toe(s), initial encounter for closed fracture; W55.19XA Other contact with horse, initial encounter; Y93.9 Activity, unspecified; Z3A.18 18 weeks gestation of pregnancy
CPT/HCPCS: 73630; 99283

== ENCOUNTER → 2024-09-23 08:48 | Outpatient (CLI) | payer OTHER, SELFPAY ==
--- NOTE | 2024-09-23 08:49 | DI.US.S_ITS ---
PROCEDURE: US OB >= 14 WEEKS FETUS INDICATIONS: ANATOMY OUTSIDE/PRIOR DATING DATA: Last menstrual period (LMP): 04/15/24. LMP-based estimated date of delivery (MAEGAN): 01/20/25. First dating scan (date and location): 06/24/24. Estimated date of delivery (MAEGAN) from first dating scan: 02/07/25. The calculations are made using the working MAEGAN of 02/07/25. TECHNIQUE: Real-time scanning was performed of the fetus, with image documentation and biometric measurements. Endovaginal scanning: Not performed COMPARISON: [facility], , OB >= 14 WEEKS FETUS, 11/01/2021, 9:03. FINDINGS: General: A single living intrauterine gestation is present. Presentation: Breech. Placenta: Placental position is posterior , without previa. Amniotic fluid index: 14.8 cm, normal range is 5-24 cm. Single deepest vertical pocket is 5.4 cm. heart rate: 155 beats per minute. Maternal cervical canal: Closed and 5.8 cm long. Normal lower limit is 2.5 cm. biometrics: Biparietal diameter: 4.8 cm, 20 weeks four days Head circumference: 17.9 cm, 20 weeks two days Abdominal circumference: 15.8 cm, 21 weeks 0 days Femur length: 3.7 cm, 21 weeks five days Clinically estimated gestational age: 20 weeks three days Composite gestational age from present scan: 20 weeks six days Estimated weight and percentile: 403 g, 83rd percentile Anatomic survey: Limited views of structures were obtained due to maternal body habitus. Neuro: Ventricles are non-dilated at less than 10 mm. Cisterna magna is normal at 3-11 mm. Cerebellum is normal in size and morphology. Nuchal skin fold: Normal at less than 6 mm between 14-21 weeks gestational age. Face: Nose and lips, facial profile are normal. Spine: No evidence for spina bifida. Heart: 4-chambered heart is present, with normal ventricular outflow tracts. Diaphragm: Diaphragm is intact. Stomach: Left-sided stomach is present. Kidneys: No hydronephrosis. Normal is less than 5 mm in 2nd trimester, less than 7 mm in 3rd trimester. Cord: 3-vessel cord has orthotopic insertion. Bladder: Normal in size. Extremities: All 4 extremities identified. IMPRESSION: Single live intrauterine with estimated weight at the 83rd percentile. Symmetric growth, three days ahead of the expected gestational age. Normal anatomy. Closed cervix and normal amniotic fluid volume. Posterior placenta We strive to produce accurate, complete, and clear reports of imaging services. To assist us in improving patient care, this report was composed using standard report templates and voice recognition software. Therefore, it may contain abnormal punctuation, insertions and/or omissions. Occasional wrong-word or sound-alike substitutions may occur. Though we review the report and make efforts to correct it, we do recommend that the report be read carefully in proper context to recognize any text inaccuracies. Dictated by: Karen Johnson M.D. on 09/23/2024 at 16:00 Approved by: Karen Johnson M.D. on 09/23/2024 at 16:03
== END ==
PROVIDERS: PCP Family Medicine; Referring Provider Obstetrics & Gynecology; Visit Provider Obstetrics & Gynecology
DX: Z34.82 Encounter for supervision of other normal pregnancy, second trimester (principal); Z3A.20 20 weeks gestation of pregnancy
CPT/HCPCS: 76811

== ENCOUNTER → 2024-10-25 08:04 | Outpatient (CLI) | payer OTHER, SELFPAY ==
[2024-10-25 09:59] LABS: Hematocrit 36.8 % (36-46); Hemoglobin 12.5 g/dL (12.0-16.0)
[2024-10-25 10:39] LABS: GTT (PREG) 1 Hour PP 50gm Dose 112 mg/dL (76-139)
== END ==
PROVIDERS: PCP Family Medicine; Referring Provider Specialist; Visit Provider Specialist
DX: Z34.82 Encounter for supervision of other normal pregnancy, second trimester (principal); Z3A.26 26 weeks gestation of pregnancy
CPT/HCPCS: 36415; 82950; 85014; 85018

== ENCOUNTER → 2024-11-02 09:35 | Outpatient (CLI) | payer OTHER, SELFPAY | PROVIDERS: PCP Family Medicine; Visit Provider Physician Assistant | DX: J02.9 Acute pharyngitis, unspecified (principal) | CPT/HCPCS: 87070 ==

== ENCOUNTER → 2024-11-22 15:49 | Outpatient (CLI) | payer OTHER, SELFPAY ==
--- NOTE | 2024-11-22 15:51 | DI.RAD.S_ITS ---
PROCEDURE: XR FOOT RT MIN 3V INDICATIONS: 4th toe pain TECHNIQUE: 3 views of the foot were acquired. COMPARISON: [facility], CR, XR FOOT RT MIN 3V, 09/09/2024, 17:19. FINDINGS: Bones: Oblique fracture of the 4th proximal phalanx has unified in anatomic alignment since comparison film 09/09/2024. Equivocal fracture of the 5th proximal phalanx is also unified. Joints: Mild hammertoe deformities 2nd through 5th digits noted. Soft tissues: Moderate diffuse soft tissue swelling is likely edema IMPRESSION: For the 5th proximal phalangeal fractures of unified in anatomic alignment. Moderate diffuse soft tissue swelling most compatible edema Dictated by: Robert Castellanos M.D. on 11/23/2024 at 11:58 Approved by: Robert Castellanos M.D. on 11/23/2024 at 12:00
== END ==
PROVIDERS: PCP Family Medicine; Referring Provider Family Medicine; Visit Provider Family Medicine
DX: S92.511D Displaced fracture of proximal phalanx of right lesser toe(s), subsequent encounter for fracture with routine healing (principal); M79.674 Pain in right toe(s); M20.41 Other hammer toe(s) (acquired), right foot; X58.XXXD Exposure to other specified factors, subsequent encounter
CPT/HCPCS: 73630

== ENCOUNTER → 2025-01-14 15:25 | Outpatient (CLI) | payer OTHER, SELFPAY ==
[2025-01-16 11:34] LABS: Strep Grp B PCR NEG for Grp B Strep
== END ==
LOC: LAB 15:26
PROVIDERS: PCP Family Medicine; Visit Provider Obstetrics & Gynecology
DX: Z34.93 Encounter for supervision of normal pregnancy, unspecified, third trimester (principal); Z3A.36 36 weeks gestation of pregnancy
CPT/HCPCS: 87653

== ENCOUNTER 2025-02-01 05:47 | Inpatient (IN) | payer OTHER, SELFPAY ==
[2025-02-01 06:29] LABS: Add Manual Diff / Slide Review NO; Basophils Absolute Auto 0 /uL (0-100); Basophils Percent Auto 0.3 % (0-2); Eosinophils Absolute Auto 100 /uL (0-450); Hematocrit 39.6 % (36-46); Hemoglobin 13.5 g/dL (12.0-16.0); Lymphocytes Absolute Auto 1900 /uL (1100-4500); Lymphocytes Percent Auto 17.1 % (25-40); Mean Corpuscular HGB Conc 34.1 % (30-36); Mean Corpuscular Hemoglobin 30.5 PG (26-34); Mean Corpuscular Volume 89.5 fL (80-100); Monocytes Absolute Auto 900 /uL (0-900); Monocytes Percent Auto 7.5 % (3-14); Neutrophils Absolute Auto 8400 /uL (1500-7000); Neutrophils Percent Auto 74.1 % (50-75); Platelet Count 227 X10^3/uL (150-400); Red Blood Cell Count 4.43 X10^6/uL (4.0-5.2); White Blood Cell Count 11.4 X10^3/uL (4.5-11.0)
[2025-02-01] MEDS: CITRIC ACID/SODIUM CITRATE 15 ML SOLUTION 30 ML PO (07:29)
--- NOTE | 2025-02-01 07:33 | PM.OBHP.IH.1 ---
OB HPI Date/Time Date of admission: 02/01/25 Date Patient Seen: 02/01/25 Time Patient Seen: 07:33 History of Present Condition Chief complaint: Section MAEGAN Calculator Estimated Delivery Date Method Current WG Current Estimate 02/07/25 Ultrasound #1 39w 1d Other Estimates 01/20/25 LMP (Certain) 41w 5d Estimated Gestational Age (weeks): 39+1 : 3 Para: 1 care: good care, initiated at week # (7), number of visits (12) and pounds weight gain (63) Dating criteria OB: LMP confirmed by 1st trimester US Ultrasounds: normal 1st trimester US and normal mid trimester US Obstetrical complications: none Medical complications OB: none Indications Operative indications ( section): previous uterine surgery Preadmission Labs Last OB Lab Results: Blood Type O Positive 02/01/25 06:20 Antibody Screen Negative 02/01/25 06:20 Hct 39.6 % (36-46) 02/01/25 06:20 Hgb 13.5 g/dL (12.0-16.0) 02/01/25 06:20 Hep Bs Antigen Negative s/c (NEGATIVE) 07/14/24 11:26 Hepatitis C Antibody Negative s/c (NEGATIVE) 07/14/24 11:26 Rubella Antibody 43.4 IU/mL (>15) 07/14/24 11:26 VZV IgG Antibody Reactive (Non Reactive) 07/14/24 11:26 Glucose 1 Hr 50 gm 112 mg/dL (76-139) 10/25/24 09:24 Hemoglobin A1c 5.2 % (4.0-6.0) 04/06/21 17:38 Group B Strep (PCR) Neg for grp b strep 01/14/25 15:25 -: Chlamydia screen: negative, Gonorrhea screen: negative and Urine: negative -: PAP smear: Normal Genetic Screens: Cell-free DNA: Normal (Normal female) and Alpha-fetoprotein: Normal External Labs -: Urine: negative Prior (ies) Past Pregnancies Del. Date GA/Weeks Labor Lgth Wt Sex Route Outcome Anesthesia Place Delv Breastfeed Preg Comp Name 11/09/21 38 60 8 lb 12 oz Female live - full term epidural IH 15 months induced hyper- other Elliotte 11/17/23 17 elective anomaly Delivery Date: 11/09/21 Last Updated by: Cintia Davis RN 6nd trimester Covid infection Evaluation Evaluation Baseline heart rate: 135 Variability: Moderate (11-25) monitor accelerations: Present Monitor Decelerations: Absent Category of Tracing: Reactive [facility] Medical History (Updated 11/22/24 @ 17:27 by Rajeev Villatoro DO) Toe fracture, right Somatic dysfunction of lower extremity Toe pain, right Somatic dysfunction of right lower extremity Acute mastitis of left breast disorder Delivery by section using transverse incision of lower segment of uterus (~11/09/21) Breast pain (~2020) Left leg pain Right knee pain Irregular menstrual cycle (~2014) Hypertension affecting in third trimester Anxiety Leg fracture, right (~2007) Fractures Chicken pox (~1997) Surgical History (Updated 06/21/24 @ 13:08 by Cintia Davis RN) H/O dilation and curettage (~11/2023) Previous section (~2021) Anesthesia [place] teeth removed (~2010) History of varicose vein ligation Family History Sister Liver failure Mental health problem Suicide Drug overdose Grandmother Cancer Multiple myeloma Diverticulitis Grandfather Cancer History of heart disease Hyperlipidemia Hypertension Colon cancer Aortic aneurysm Grandmother Hypertension Stroke Father Hypertension Knee joint replacement status Mother Gestational diabetes mellitus (GDM) affecting Asthma Depression Grandfather Heavy smoker Myocardial infarction Family/Other No problems noted. Family/Other Type 1 diabetes Social History marital status: number of children: 1 household members: spouse and children lives independently: Yes caregiver/support person: Yes housing: house pets and animals: Yes (dog, horse) education level: college occupational status: employed current occupational exposures/hazards: No special pasquale needs: No travel history: recent leisure activities: other seatbelt use: always helmet use: Yes water heater temp set < 120 deg: Yes working smoke detector in home: Yes fire extinguisher in home: Yes carbon monox detector in home: Yes firearms in home: Yes firearms unloaded and locked: Yes do you feel safe at home: Yes Smoking Status: Never smoker second hand exposure: No alcohol intake: former substance use type: does not use during the past year weight has: decreased > 10 lbs well-balanced diet: daily or most days daily servings fruits/ve or more times/day caffeine: Yes (AM cup coffee) Type(s) of exercise: walking, aerobic, weight lifting, other and running frequency: 5-6 times per week Meds Home Medications and Allergies Home Medications Medication Instructions Recorded Confirmed Type Double Electric breast Pump and #1 ea 10/04/21 01/28/25 Rx Supplies vitamin-ferrous sulfate tab PO 08/21/23 01/28/25 History 27 mg iron-folic acid 0.8 mg tablet toñito seed oil-omega 3-6-9 1,000 mg cap PO 06/21/24 01/28/25 History (580 mg) capsule ferrous gluconate 225 mg (27 mg 225 mg PO DAILY 06/21/24 01/28/25 History iron) tablet (Fergon) aspirin 81 mg tablet,delayed 81 mg PO DAILY 11/02/24 01/28/25 History release (Adult Aspirin Regimen) Allergies Allergy/AdvReac Type Severity Reaction Status Date / Time Penicillins Allergy Intermediate Rash Verified 01/28/25 14:27 kiwi AdvReac Mild Fuzzy Verified 01/28/25 14:27 Tongue OB Exam Narrative Exam Narrative: Generally: Patient is sitting up in bed, no acute distress HEENT: No thyromegaly, no anterior cervical or supraclavicular lymphadenopathy. Lungs:Clear to auscultation bilaterally, no wheezes. Cardiovascular: Regular rate and rhythm, no murmurs, rubs, or gallops. Abdomen: Well-healed Pfannenstiel scars. No hepatosplenomegaly. No masses palpable. Fundal height: 43 cm Estimated weight: 8-1/2 lb Extremities: 1+ edema, significant varicosities Objective Labs 02/01/25 06:20 Labs: Laboratory Results - last 24 hr 02/01/25 06:20 WBC 11.4 H RBC 4.43 Hgb 13.5 Hct 39.6 MCV 89.5 MCH 30.5 MCHC 34.1 RDW 13.0 Plt Count 227 Neut % (Auto) 74.1 Lymph % (Auto) 17.1 L [place] % (Auto) 7.5 Eos % (Auto) 1.0 L Baso % (Auto) 0.3 Neut # (Auto) 8400 H Lymph # (Auto) 1900 [place] # (Auto) 900 Eos # (Auto) 100 Baso # (Auto) 0 Blood Type O Positive Antibody Screen Negative Assessment and Plan Assessment and Plan Assessment and Plan narrative: Assessment: 34-year-old 3 para 1 at 39-,1/7 weeks gestation with a previous section Plan: Repeat low-transverse section The risks, benefits, and alternatives to the procedure were explained to the patient. The risks including bleeding, infection, injury to the bowel, bladder, or ureters. She understands these risks and agrees to proceed. A full par Q was held and consent form was signed. Time-Based Coding :: [TOTAL MINUTES] spent with patient and on the chart (including review of chart, obtaining history, exam, reviewing outside data, placing orders, documenting exam and treatment plan, and counseling patient) on [DATE].
--- NOTE | 2025-02-01 07:37 | PM.PREOP ---
Pre-operative Note Interval Note History & Physical reviewed/Exam performed by Physician: Yes Changes to H&P: No H&P completed within 30 days and has changed as indicated here:: 02/01/25
[2025-02-01] MEDS: CEFAZOLIN 2 GM/100 ML PREMIX 100 ML IV (08:12)
[2025-02-01] MEDS: ACETAMINOPHEN IV 1,000 MG/100 ML VIAL 400 MG IV (08:55)
--- NOTE | 2025-02-01 09:10 | SUR.OPER ---
Viable baby girl born at 0838. placenta and cord blood given to OB RN.
--- NOTE | 2025-02-01 09:29 | PM.OBCS.1 ---
Operative Date/Time/Diagnoses Date of procedure: 02/01/25 Time of procedure: 09:29 Pre-op diagnosis: 39-1/7 weeks gestation Previous section Post-op diagnosis: same Procedure & Clinicians Procedure: Repeat low transverse section Same procedure as scheduled: Yes Indications: Patient is a 34-year-old 3 para 1 at 39-,1/7 weeks gestation. She has 1 prior section. Surgeon: Isi Ortiz Click Yes if Unassisted: No Dentist Attendant: Faby Montes Reason for Dentist Attendant: The assistant produce manager was necessary to retract upon entry into the abdomen and uterus. She assisted with delivery of the infant with fundal pressure. She assisted with closure with retraction, clipping of suture, and closure of the contralateral fascia. Anesthesia Type: Spinal (With Duramorph) Operative Notes Findings: Live female in the ROT presentation Normal uterus, tubes, and ovaries Closure Type: primary Specimen(s): cord blood and placenta Intraoperative meds administered: Acetaminophen, Duramorph, Ketorolac and Pitocin Applied: Catheter (To continuous drainage) Estimated Blood Loss (mL): 600 Blood products transfused: none Procedure in detail: The patient was taken to the operating room where she was placed in the seated position. Spinal anesthesia with Duramorph was administered. The patient was then placed in the dorsal supine position with a leftward tilt. She was prepped and draped in the usual sterile fashion. A timeout was performed. After spinal analgesia was found to be adequate, a Pfannenstiel skin incision was made through the previous incision and carried through to the underlying layer fascia. The fascia was nicked in the midline, and the incision extended bilaterally with the Prater scissors. The superior aspect of the fascial incision was grasped with a [place] clamps, elevated, and the underlying rectus muscles dissected off sharply and bluntly. Attention was then turned to the inferior aspect of this incision which in a similar fashion was grasped with a Gianni clamps, elevated, and the underlying rectus muscles dissected off sharply and bluntly. The rectus muscles were in the midline. The peritoneum was identified, grasped between 2 hemostats, and entered sharply with the Metzenbaum scissors. This incision was extended superiorly and inferiorly with good visualization of the bladder. The vesicouterine peritoneum was identified, grasped with the pickup, and entered sharply with the Metzenbaum scissors. This incision was extended bilaterally, and the bladder flap was created digitally. An Phi retractor was placed. The lower uterine segment was incised in a transverse fashion with the scalpel. Upon entering the amniotic sac there was moderate amount of clear amniotic fluid. The 's head was delivered without difficulty. The nose and mouth were suctioned with bulb suction. The remainder of the body delivered without difficulty and was wrapped in a warm blanket. The cord was double clamped and cut after 1 minute. Cord bloods were obtained. The infant was handed off to waiting RN and RT. The placenta was delivered by expression. The uterus was cleared of all clots and debris. The uterine incision was repaired with #1 chromic in a running interlocking fashion, and a second layer the same suture was used for an imbricating layer. There was a small amount of bleeding on the right edge of the incision. A aewzwt-zo-coycs suture was placed for hemostasis. Hemostasis was achieved. The tubes and ovaries were examined and were found to be normal. The gutters were cleared of all clots and debris. The bladder flap was reapproximated using 2-0 Vicryl in a running fashion. The Phi retractor was removed. Before closing the peritoneum, there was found to be some bleeding on the fimbria of the left tube. A fxuknc-rm-[id number] suture with 3-0 chromic was placed. Care was taken not to involve the lumen of the tube. Hemostasis was achieved. The parietal peritoneum was closed using 2-0 Vicryl in a running fashion. The fascia was reapproximated using 0 Vicryl in a running fashion. The subcutaneous layer was copiously irrigated with warm normal saline. 5 simple interrupted sutures of 3-0 Vicryl were placed to reapproximate the subcutaneous layer. The skin was closed with 4-0 Monocryl in a subcuticular fashion. Steri-Strips were placed. An Aquacel dressing was placed. The uterus was expressed of a small amount of old blood. Sponge, lap, and instrument counts were correct x-2. The patient tolerated the procedure well, and was taken to PACU in stable condition. Complications: none Baby 1: Delivery Date: 02/01/25 Delivery Time: 08:39 Infant Gender: Female Presentation: vertex Position: Right Occiput Transverse Placental Delivery Description: Expressed Cord Vessel Description: 3 Vessels and Clamped/Cut (After 1 minute) score (1 min): 7 score (5 min): 9 weight: 8 lb 7.8 oz Post-operative Condition: stable Disposition: PACU Aftercare: routine postop
[2025-02-01 09:33] VITALS: BP 92/54; PULSE 81; RESP 16; TEMP 36.1; O2SAT 100
[2025-02-01 09:38] VITALS: BP 96/65; PULSE 79; RESP 15; TEMP 36.1; O2SAT 100
[2025-02-01 09:43] VITALS: BP 97/59; PULSE 75; RESP 12; TEMP 36.1; O2SAT 100
[2025-02-01 09:48] VITALS: BP 97/59; PULSE 70; RESP 15; TEMP 36.2; O2SAT 100
[2025-02-01] MEDS: OXYCODONE IR 5 MG TABLET PO (10:50)
[2025-02-01] MEDS: KETOROLAC 30 MG/ML VIAL IV ×2 (15:29→21:38)
[2025-02-01] MEDS: ACETAMINOPHEN 325 MG TABLET 650 MG PO ×2 (15:29→21:39)
[2025-02-02] MEDS: KETOROLAC 30 MG/ML VIAL IV (03:33)
[2025-02-02] MEDS: ACETAMINOPHEN 325 MG TABLET 650 MG PO ×2 (03:34→10:39)
[2025-02-02 08:11] LABS: Add Manual Diff / Slide Review NO; Basophils Absolute Auto 0 /uL (0-100); Basophils Percent Auto 0.1 % (0-2); Eosinophils Absolute Auto 100 /uL (0-450); Eosinophils Percent Auto 0.5 % (2-4); Hemoglobin 11.7 g/dL (12.0-16.0); Lymphocytes Absolute Auto 1900 /uL (1100-4500); Lymphocytes Percent Auto 13.6 % (25-40); Mean Corpuscular HGB Conc 34.5 % (30-36); Mean Corpuscular Hemoglobin 31.1 PG (26-34); Mean Corpuscular Volume 90.1 fL (80-100); Monocytes Absolute Auto 1200 /uL (0-900); Monocytes Percent Auto 8.7 % (3-14); Neutrophils Absolute Auto 10800 /uL (1500-7000); Neutrophils Percent Auto 77.1 % (50-75); Platelet Count 183 X10^3/uL (150-400); Red Blood Cell Count 3.77 X10^6/uL (4.0-5.2); Red Cell Distribution Width 12.9 % (11.6-14.8)
--- NOTE | 2025-02-02 08:53 | DI.US.S_ITS ---
PROCEDURE: US PERIPH VENOUS LOW EXTREM LT INDICATIONS: tender warm spot over varicosity on back of left lower thigh TECHNIQUE: Real-time imaging, as well as color and pulse Doppler interrogation, were performed of the lower extremity deep veins from the inguinal ligament to the popliteal fossa, with documentation of the visualized calf veins. COMPARISON: None. FINDINGS: The common femoral, femoral, popliteal, and the visualized calf veins are normally compressible, and free of intraluminal thrombus. Color and pulse Doppler demonstrate normal phasic intraluminal flow. There is normal augmentation response to distal compression maneuver. Thrombosed superficial varicosities are seen in the upper thigh and inferior medial thigh, 4.3 cm in length. IMPRESSION: No findings of lower extremity deep venous thrombosis. Thrombosed superficial varicosities are seen in the upper thigh and inferior medial thigh, 4.3 cm in length. Connection to the deep system not well delineated on this exam. Dictated by: Noel Suero M.D. on 02/02/2025 at 10:34 Approved by: Noel Suero M.D. on 02/02/2025 at 10:37
[2025-02-02] MEDS: PRENATAL VIT,CALC/IRON/FOLIC 1 TABLET 1 TAB PO (08:56)
[2025-02-02] MEDS: DOCUSATE 100 MG CAPSULE PO (08:56)
[2025-02-02 09:18] VITALS: BP 108/71; PULSE 84; RESP 17; TEMP 36.6
[2025-02-02 10:39] VITALS: TEMP 36.6
[2025-02-02] MEDS: LANOLIN OINT 7 GM 1 APPLIC TOP (10:39)
[2025-02-02 11:42] VITALS: TEMP 36.6
[2025-02-02] MEDS: IBUPROFEN 600 MG TABLET PO (11:42)
--- NOTE | 2025-02-02 18:43 | PM.OBDS.1 ---
Discharge Providers Provider Date of admission: 02/01/25 05:47 Discharge Date: 02/02/25 Primary care physician: Rajeev Villatroo DO Consults: 02/01/25 10:04 Consult to Record Tabulating Clerk Routine Comment: Discharge provider: Isi Ortiz MD Summary Hospital Course Date Patient Seen: 02/02/25 Time Patient Seen: 08:30 Diagnoses: 39-1/7 weeks gestation Previous section Hospital Course: Patient is a 34-year-old 3 para 2 who presented on February 01, 2025 for a scheduled repeat section at 39-,1/7 weeks gestation. She underwent this procedure without complication. Her postoperative course was unremarkable. She was discharged home on postop day # 1. She was tolerating a diet. was going well. No nausea or vomiting. Pain well controlled. Patient was ambulating on her own. She had a tender area on the posterior aspect of the left lower thigh. Significant varicosities of the lower extremities. A duplex of the left extremity showed no DVT. There were superficial thrombi. Peripartum Data Delivery Method: Section Procedures: Spinal anesthesia Repeat low transverse section complications: none 1: Gender: Female Disposition of : home Status at Discharge Cognitive/behavioral status at discharge: oriented Functional status at discharge: independent ambulation Overall status at discharge: patient is progressing back to baseline Time Spent with Patient Time attestation: Total time spent providing and/or coordinating discharge services: Time spent: Less than 30 minutes Objective Labs 02/02/25 07:09 Labs: Laboratory Results - last 24 hr 02/02/25 07:09 WBC 14.0 H RBC 3.77 L Hgb 11.7 L Hct 34.0 L MCV 90.1 MCH 31.1 MCHC 34.5 RDW 12.9 Plt Count 183 Neut % (Auto) 77.1 H Lymph % (Auto) 13.6 L [place] % (Auto) 8.7 Eos % (Auto) 0.5 L Baso % (Auto) 0.1 Neut # (Auto) 77982 H Lymph # (Auto) 1900 [place] # (Auto) 1200 H Eos # (Auto) 100 Baso # (Auto) 0 Exam Vital Signs (past 8 hours): - 02/02/25 11:42 Temperature 97.8 F Oxygen Delivery Method Room Air Narrative Exam Narrative: Generally: Patient sitting up in bed, no acute distress Lungs: Clear to auscultation bilaterally Cardiovascular: Regular rate and rhythm Fundus: Firm at U -1 Incision: Clean dry and intact with Aquacel dressing Extremities: Significant varicosities. Tenderness in the lower portion of the left posterior thigh. Discharge Plan Discharge Plan Patient Disposition: Home Provider Discharge Comment: Call with fever, chills, or bleeding vaginally more than a pad in an hour Ibuprofen 600 mg every 6 hours as needed for cramping Tylenol 650 mg every 6 hours as needed Stool softener as needed Push oral fluids Continue 81 mg aspirin for 6 weeks Discharge orders & Medications Prescriptions: New oxycodone 5 mg tablet 5 mg PO Q6H PRN (Reason: pain) Qty: 10 0RF Continued aspirin [Adult Aspirin Regimen] 81 mg tablet,delayed release (DR/EC) 81 mg PO DAILY Fergon 225 mg (27 mg iron) tablet 225 mg PO DAILY toñito seed oil-omega 3-6-9 1,000 mg (580 mg) capsule PO vit-ferrous sulfat-FA 27 mg iron- 0.8 mg tablet PO No Action (DME) Double Electric breast Pump and Supplies See Rx Instructions .ROUTE .MEDSUPPLY Qty: 1 0RF Rx Instructions: Use electric breast pump and supplies as directed for 99 months. MAEGAN 11/14/21. Follow up/Referrals: Isi Ortiz MD [Physician] - (One week incision check appointment: February 09 at 10:00am. Please arrive at 09:45am to check in. six week appointment: March 16 at 10:30am. Please arrive at 10:15am to check in. ) Diet/Activity/Treatments Diet: Regular Activity: No heavy lifting, nothing more than the baby or a gal milk for the first 2 weeks Skin/Wound/Dressing Care Report to your healthcare provider any signs of infection, such as:: chills, fever, increased pain, unusual drainage and unusual redness Dressing: Do not remove Visit Report/Discharge Packet Instructions: DI for Hemorrhage, Deep Vein Thrombosis, DI for , DI for Depression, DI for Prescription Opioid Use Stand Alone Forms: Discharge: Care, Patient Portal/API, Stroke Signs & Symptoms Discharge Data Primary Care Provider: Rajeev Villatoro
== END 2025-02-02 13:00 | disposition home or self-care (01) | DRG 788 ==
PROVIDERS: Admitting Provider Obstetrics & Gynecology; PCP Family Medicine; Referring Provider Obstetrics & Gynecology; Visit Provider Obstetrics & Gynecology
PROC: 10D00Z1 Extraction of Products of Conception, Low, Open Approach (ICD-10-PCS; CPT 59514; principal; 2025-02-01 07:45)
DX: O34.211 Maternal care for low transverse scar from previous cesarean delivery (principal); Z3A.39 39 weeks gestation of pregnancy; Z37.0 Single live birth; O87.4 Varicose veins of lower extremity in the puerperium
CPT/HCPCS: 36415; 59050; 59510; 59514; 85025; 86850; 86900; 86901; 93971; J0131; J0690; J1100; J1885; J2274; J2405